=== PATIENT | female | born 1980 | race Caucasian/White ===

== ENCOUNTER 2017-09-03 22:41 | Emergency (ER) | payer OTHER ==
[2017-09-03] MEDS ORDERED: IBUPROFEN 400 MG TAB PO STA (23:05)
--- NOTE | 2017-09-03 23:53 | ED ---
Extremity Problem HPI - General Chief complaint: Extremity Problem,Nontraumatic Stated complaint: Arm bruising Time Seen by Provider: 09/03/17 22:47 Source: patient Mode of arrival: ambulatory Limitations: no limitations - History of Present Illness Initial comments: Patient is a 37-year-old woman who presents to be evaluated for left arm swelling and discoloration. The patient relates that she had gone to the plasma donation center days ago and donated. She states that at the time they noted she had a high pressure reading on return. The patient did not notice any symptoms on that day but today has noticed increasing of discoloration and swelling. There is tenderness there. No loss of strength or sensation to the arm. No fevers, dyspnea, palpitations or cough. MD Complaint: extremity pain, extremity swelling -: hour(s) Location: left, upper extremity History of Same: No Quality: dull Consistency: constant Improves with: nothing Associated Symptoms: denies other symptoms - Related Data Home Medications Medication Instructions Recorded Confirmed Levothyroxine Sodium [Synthroid] 125 mcg PO DAILY 10/19/13 08/19/15 Beclomethasone Dipropionate [Qvar 1 puff INHALATION RT-BID 06/28/14 08/19/15 40 mcg/puff] Albuterol Inhaler [Ventolin Hfa 1 - 2 puff INHALATION RT-Q6H PRN 06/12/15 Inhaler] Albuterol Nebulized [Ventolin 2.5 mg INHALATION RT-Q6H PRN 06/12/15 08/19/15 Nebulized] Cholecalciferol (Vitamin D3) 50,000 unit PO Q30D 06/12/15 08/19/15 [Vitamin D] Omeprazole [PriLOSEC] 20 mg PO AC-BRKFST 06/12/15 08/19/15 Zds-Mgee-Smnya Acid 1 cap PO DAILY 06/12/15 08/19/15 [-U Capsule] Previous Rx's Medication Instructions Recorded Famotidine [Pepcid] 20 mg PO BID #30 tablet 06/12/15 Vjn-Wfvb-Sjqbh Acid 1 each PO DAILY #100 cap 06/12/15 [-U Capsule (formulary)] Ibuprofen [Motrin] 600 mg PO Q8HR PRN #20 tab 09/04/17 Allergies Allergy/AdvReac Type Severity Reaction Status Date / Time cephalexin monohydrate Allergy Unknown Verified 09/03/17 22:45 [From Keflex] clindamycin Allergy Unknown Verified 09/03/17 22:45 diphenhydramine HCl Allergy Unknown Verified 09/03/17 22:45 [From Benadryl] nicotine Allergy Unknown Verified 09/03/17 22:45 Penicillins Allergy Unknown Verified 09/03/17 22:45 rofecoxib [From Vioxx] Allergy Unknown Verified 09/03/17 22:45 tramadol Allergy Unknown Verified 09/03/17 22:45 varenicline tartrate Allergy Unknown Verified 09/03/17 22:45 [From Chantix] Review of Systems ROS Statement: Those systems with pertinent positive or pertinent negative responses have been documented in the HPI. ROS Other: All systems not noted in ROS Statement are negative. Constitutional: Denies: fever, chills, weakness Respiratory: Denies: cough, dyspnea Cardiovascular: Denies: chest pain, palpitations, syncope Gastrointestinal: Denies: abdominal pain, vomiting Neurological: Denies: weakness, numbness, paresthesias Hematological/Lymphatic: Denies: easy bleeding Past Medical History Past Medical History: Asthma, Diabetes Mellitus, Hypertension, Thyroid Disorder Additional Past Medical History / Comment(s): arthritis History of Any Multi-Drug Resistant Organisms: None Reported Past Surgical History: Section, Orthopedic Surgery Past Anesthesia/Blood Transfusion Reactions: No Reported Reaction Past Psychological History: Anxiety, Bipolar, Depression Smoking Status: Current every day smoker Past Alcohol Use History: None Reported Past Drug Use History: None Reported - Past Family History Sister(s) Family Medical History: Musculoskeletal Disorder Additional Family Medical History / Comment(s): 3 sisters and 1 brother Mother Family Medical History: Diabetes Mellitus Additional Family Medical History / Comment(s): also dad and little sister. both parents and all siblings have bipolar General Exam Limitations: no limitations General appearance: alert, in no apparent distress, obese Head exam: Present: atraumatic, normocephalic Respiratory exam: Present: normal lung sounds bilaterally. Absent: respiratory distress, wheezes, rales, rhonchi, stridor Cardiovascular Exam: Present: regular rate, normal rhythm, normal heart sounds. Absent: systolic murmur, diastolic murmur, rubs, gallop Extremities exam: Present: full ROM, tenderness, normal capillary refill, other (Palpable hematoma left arm proximal to the elbow, anterior aspect.). Absent: normal inspection Skin exam: Present: warm, dry, intact, other (Ecchymosis to the left arm just proximal to the antecubital fossa and extending to the antecubital fossa. There does appear to be palpable hematoma..) Course Vital Signs 09/03/17 22:43 Temperature 98.3 F Pulse Rate 87 Respiratory 20 Rate Blood Pressure 159/91 O2 Sat by Pulse 96 Oximetry Disposition Clinical Impression: Hematoma Disposition: HOME SELF-CARE Condition: Good Instructions: Contusion in Adults (ED) Prescriptions: Ibuprofen [Motrin] 600 mg PO Q8HR PRN #20 tab PRN Reason: Pain Is patient prescribed a controlled substance at d/c from ED?: No Referrals: None,Stated [Primary Care Provider] - 1-2 days
--- NOTE | 2017-09-04 00:53 | US ---
EXAMINATION TYPE: US venous doppler duplex UE LT DATE OF EXAM: 09/04/2017 COMPARISON: NONE CLINICAL HISTORY: Pain. SIDE PERFORMED: Left Left Arm: Negative for DVT. No fluid collection or other abnormality seen at patients area of bruising. IMPRESSION: No evidence of deep venous thrombosis in the left arm.
[2017-09-04 01:41] VITALS: BP 116/69; PULSE 68; RESP 16; TEMP 98.9
== END 2017-09-04 01:40 | disposition home or self-care (01) ==
LOC: EC 22:41
DX: M79.81 Nontraumatic hematoma of soft tissue (principal); J45.909 Unspecified asthma, uncomplicated; E07.9 Disorder of thyroid, unspecified; M19.90 Unspecified osteoarthritis, unspecified site; F17.200 Nicotine dependence, unspecified, uncomplicated; Z88.0 Allergy status to penicillin; Z88.1 Allergy status to other antibiotic agents; Z88.5 Allergy status to narcotic agent; Z88.8 Allergy status to other drugs, medicaments and biological substances; Z79.51 Long term (current) use of inhaled steroids; Z79.899 Other long term (current) drug therapy
CPT/HCPCS: 99283

== ENCOUNTER 2017-11-01 01:04 | Emergency (ER) | payer OTHER ==
[2017-11-01 01:17] VITALS: RESP 17
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
[2017-11-01] MEDS ORDERED: ACETAMINOPHEN TAB 325 MG TAB PO STA (01:35)
[2017-11-01] MEDS ORDERED: IBUPROFEN 600 MG TAB PO STA (01:35)
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
[2017-11-01 04:42] VITALS: BP 129/62; PULSE 75; TEMP 97.1
== END 2017-11-01 04:43 | disposition home or self-care (01) ==
LOC: SUPCPDRO 01:04 → EC 01:04
DX: S00.03XA Contusion of scalp, initial encounter (principal); S00.531A Contusion of lip, initial encounter; R04.0 Epistaxis; M79.89 Other specified soft tissue disorders; J45.909 Unspecified asthma, uncomplicated; E07.9 Disorder of thyroid, unspecified; F17.200 Nicotine dependence, unspecified, uncomplicated; Z88.0 Allergy status to penicillin; Z88.1 Allergy status to other antibiotic agents; Z88.5 Allergy status to narcotic agent; Z88.6 Allergy status to analgesic agent; Z88.8 Allergy status to other drugs, medicaments and biological substances; Z91.048 Other nonmedicinal substance allergy status; Z79.51 Long term (current) use of inhaled steroids; Z79.899 Other long term (current) drug therapy; Y04.0XXA Assault by unarmed brawl or fight, initial encounter; Y92.481 Parking lot as the place of occurrence of the external cause
CPT/HCPCS: 70450; 70486; 72125; 99285

== ENCOUNTER → 2018-02-04 | Outpatient (CLI) | payer OTHER ==
--- NOTE | 2018-02-04 07:54 | US ---
EXAMINATION TYPE: US liver DATE OF EXAM: 02/04/2018 COMPARISON: CLINICAL HISTORY: R94.5 Elevated LFT. Abnormal labs, NPO, no surgeries EXAM MEASUREMENTS: Liver Length: 18.7 cm Gallbladder Wall: 0.2 cm CHD: 0.2 cm Right Kidney: 11.5 x 5.0 x 4.0 cm Pancreas: Tail obscured by overlying bowel gas Liver: Appears enlarged in size Gallbladder: wnl Evidence for sonographic Kelsey's sign: neg CBD: wnl Right Kidney: wnl IMPRESSION: Hepatomegaly. Otherwise unremarkable study.
== END ==
LOC: RADUSWWP 06:58
PROVIDERS: ATTEND Internal Medicine
DX: R16.0 Hepatomegaly, not elsewhere classified (principal); Z88.0 Allergy status to penicillin; Z88.8 Allergy status to other drugs, medicaments and biological substances
CPT/HCPCS: 76705

== ENCOUNTER → 2018-03-11 | Outpatient (CLI) | payer OTHER | END | disposition home or self-care (01) | LOC: LABWHC1 13:47 | PROVIDERS: ATTEND Pathology Anatomic Pathology & Clinical Pathology | DX: Z53.9 Procedure and treatment not carried out, unspecified reason (principal) ==

== ENCOUNTER → 2018-03-12 | Outpatient (CLI) | payer OTHER ==
--- NOTE | 2018-03-12 22:58 | MR ---
EXAMINATION TYPE: MR knee LT wo con DATE OF EXAM: 03/12/2018 COMPARISON: Outside left knee x-ray February 03, 2018 HISTORY: Left knee pain per order. Pain locking and swelling since 1997 after basketball fall injury per patient. TECHNIQUE: Multiplanar, multisequence images of the knee is performed without IV contrast. FINDINGS: MEDIAL MENISCUS: Anterior horn is intact without tear. Triangular shape increased signal posterior ho rn medial meniscus sagittal image 24 could reflect intrasubstance tear, does not extend to articular surface. LATERAL MENISCUS: Anterior and posterior horns are intact without tear. CRUCIATE LIGAMENTS: The anterior and posterior cruciate ligaments are intact and unremarkable. COLLATERAL LIGAMENTS: The medial collateral ligament and lateral collateral ligament complex are inta ct and unremarkable. EXTENSOR MECHANISM: Visualized quadriceps and patellar tendons are intact. EFFUSION: There is small to tiny suprapatellar joint effusion. POPLITEAL CYST: No popliteal/schumacher cyst. TRICOMPARTMENT SPACES: There is mild narrowing medial tibiofemoral compartment. No significant spurri ng is seen. CARTILAGE: Tricompartment articular cartilage is preserved. No significant chondromalacia patella is noted. BONE MARROW SIGNAL: Slight heterogeneity is present. No suspicious edema is seen. OTHER: No additional significant abnormality is appreciated. IMPRESSION: 1. Possible intrasubstance tear posterior horn of the medial meniscus. No full-thickness meniscal or ligamentous tear is seen. 2. Small to tiny suprapatellar joint effusion. 3. Mild to early medial tibiofemoral compartment osteoarthritic changes.
== END ==
LOC: RADMRIMAIN 06:05
PROVIDERS: ATTEND Orthopaedic Surgery
DX: M17.12 Unilateral primary osteoarthritis, left knee (principal)

== ENCOUNTER → 2018-03-12 | Outpatient (CLI) | payer OTHER ==
[2018-03-12 12:21] LABS: Iron Saturation 17.55 (12.00-45.00)
== END | disposition home or self-care (01) ==
LOC: LABWHC1 06:46
DX: R16.2 Hepatomegaly with splenomegaly, not elsewhere classified (principal)
CPT/HCPCS: 36415; 82728; 83540; 83550

== ENCOUNTER → 2018-04-30 | Outpatient (CLI) | payer OTHER ==
[2018-04-30 13:30] LABS: Basophils # (A) 0.1 k/uL (0-0.2); Basophils % (A) 1 %; Eosinophils # (A) 0.1 k/uL (0-0.7); Eosinophils % (A) 2 %; HCT 44.3 % (34.0-46.0); HGB 13.9 gm/dL (11.4-16.0); Lymphocytes # (A) 2.5 k/uL (1.0-4.8); Lymphocytes % (A) 40 %; MCH 26.8 pg (25.0-35.0); MCHC 31.3 g/dL (31.0-37.0); MCV 85.4 fL (80.0-100.0); Mean Platelet Volume 6.2; Monocytes # (A) 0.4 k/uL (0-1.0); Monocytes % (A) 6 %; Neutrophils # (A) 3.1 k/uL (1.3-7.7); Neutrophils % (A) 49 %; Platelet Count 305 k/uL (150-450); RBC 5.19 m/uL (3.80-5.40); RDW 13.7 % (11.5-15.5); WBC 6.2 k/uL (3.8-10.6)
[2018-04-30 18:39] LABS: Anion Gap 6.2 mmol/L (4.00-12.00); Carbon Dioxide 26.8 mmol/L (21.6-31.8); Potassium 4.2 mmol/L (3.5-5.5)
== END | disposition home or self-care (01) ==
LOC: LABWHC1 12:37
PROVIDERS: ATTEND Orthopaedic Surgery
DX: Z01.812 Encounter for preprocedural laboratory examination (principal); M23.92 Unspecified internal derangement of left knee
CPT/HCPCS: 36415; 80051; 85025

== ENCOUNTER 2018-05-14 10:26 | Day surgery (SDC) | payer OTHER ==
[2018-05-07 14:08] VITALS: BMI 38.8
--- NOTE | 2018-05-13 12:53 | HP ---
HISTORY AND PHYSICAL DATE OF SERVICE: 05/14/2018 Nia Cruz is a 37-year-old patient seen with progressive left knee pain. We discussed treatment options. She elected to proceed with arthroscopy. Consent was obtained. PAST MEDICAL HISTORY: Hypertension, iud-xldnvjn-onhovkquw diabetes, asthma. PAST SURGICAL HISTORY: section. DAILY MEDICATIONS: 1. Labetalol. 2. Lisinopril. 3. Metformin. ALLERGIES: ULTRAM, TYLENOL, BENADRYL, PENICILLIN, CLINDAMYCIN, KEFLEX, VICODIN ALLERGY. SOCIAL HISTORY: She currently smokes 1/3 pack cigarettes daily. PHYSICAL EXAMINATION OF THE LEFT KNEE: Range of motion is negative 4 to 90 degrees. Tenderness along the medial and lateral joint lines, positive medial Quinn's. Collateral ligaments are stable. Hip rotation without pain. Distal neurovascular exam is intact. RADIOGRAPHS OF THE LEFT KNEE: Revealed moderate medial compartment osteoarthritis. An MRI of the left knee revealed an abnormality through the medial meniscus. IMPRESSION: 1. Internal derangement, left knee with medial meniscal tear. 2. Left knee osteoarthritis. 3. Hypertension. 4. Iqw-zhkadmy-tqvocgnet diabetes. 5. Tobacco use. PLAN: Left knee arthroscopy with partial meniscectomy and debridement. MMODL / IJN: [id number] /
[~2018-05-14 10:26] MED LIST: DEXAMETHASONE SOD PHOSPHATE 10 MG/ML 1 ML VIAL IV ONE; HYDROmorphone 0.5 MG/0.5 ML SYRINGE IVP PRN; LACTATED RINGERS 1,000 ML IV SCH; LIDOCAINE 1% 20 ML VIAL (10MG/ML) FOR IV START INTRADERMA PRN; ONDANSETRON 4 MG/2 ML VIAL IVP ONE; Pre Op ABX Message 1 EACH MISC MISCELLANE ONE; SCOPOLAMINE 1.5MG/72HR PATCH TRANSDERM ONE
[2018-05-14 10:59] LABS: Glucose,Whole Blood 105 mg/dL (75-99)
[2018-05-14] MEDS ORDERED: ALBUTEROL INHALER 60 PUFF/8 GM INHALER INHALATION ONE (12:24)
[2018-05-14] MEDS ORDERED: fentaNYL (PF) 50 MCG/ML 2 ML AMP ONE (12:24)
[2018-05-14] MEDS ORDERED: LIDOCAINE 1% INJ 10MG/ML (20 ML MDV) ONE (12:24)
[2018-05-14] MEDS ORDERED: SUCCINYLCHOLINE CHLORIDE 100 MG/5 ML SYR IV ONE (12:24)
[2018-05-14] MEDS ORDERED: MIDAZOLAM 2 MG/2 ML VIAL ONE (12:24)
[2018-05-14] MEDS ORDERED: PROPOFOL 10 MG/ML 20 ML VIAL IV ONE (12:24)
[2018-05-14] MEDS ORDERED: BUPIVACAINE (PF) 0.25% 30 ML VIAL INTRAARTIC ONE (12:42)
[2018-05-14] MEDS ORDERED: ceFAZolin 1,000 MG/50 ML BAG (PMX) IVPB ONE (12:44)
[2018-05-14] MEDS ORDERED: LACTATED RINGERS 1,000 ML IV ONE (13:19)
--- NOTE | 2018-05-14 13:37 | P.OP ---
Date of Procedure: 05/14/18 Preoperative Diagnosis: Internal derangement left knee Postoperative Diagnosis: 1. Tear lateral meniscus left knee 2. Grade 2 chondromalacia medial femoral condyle left knee 3. Reactive synovitis medial, lateral and suprapatellar compartments left knee Procedure(s) Performed: 1. Arthroscopic partial lateral meniscectomy left knee 2. Arthroscopic chondroplasty medial femoral condyle left knee 3. Arthroscopic partial synovectomy medial, lateral and suprapatellar compartments left knee Anesthesia: LIZZYA, local Surgeon: Mp Michaud Estimated Blood Loss (ml): 9 Pathology: none sent Condition: stable Disposition: PACU Indications for Procedure: 37-year-old patient seen with progressive left knee pain. After treatment options were discussed, she elected to proceed with arthroscopy. Operative Findings: See description of procedure Description of Procedure: Patient was taken to the operative suite. Patient underwent a general anesthetic by the department of anesthesia. Patient was given preoperative antibiotics. The left lower extremity was placed in a well-padded arthroscopic leg gardner. The left leg was prepped and draped in the normal sterile orthopedic fashion. A lateral parapatellar and suprapatellar incision was made. Trochars were inserted. Arthroscopy was initiated. Suprapatellar pouch revealed diffuse thick reactive synovitis. The patellofemoral joint appeared to articulate congruently. There was grade 1 chondromalacia with no osteochondral tears present. The scope was guided into the medial gutter. No loose bodies or plica were identified. The scope was then guided into the medial compartment. A medial parapatellar incision was made. Trocar inserted followed by probe. The medial meniscus appeared stable. There was grade 2 chondral malacia changes along the anterior lateral aspect of the medial femoral condyle with a large osteochondral flap tear present. There was thick reactive synovitis anteriorly. I performed a chondroplasty of the medial femoral condyle down to stable tissue. I performed a partial synovectomy decompressing the reactive synovitis. The residual osteochondral surface was stable. There was good decompression of the synovitis. Scope and probe were then guided into the intercondylar notch. Cruciates were identified, probed and found to be stable. The scope and probe were then guided into lateral compartment. There was a radial tear posterior horn lateral meniscus. The lateral femoral condyle and tibial plateau reveals some mild grade 1 chondromalacia changes. There was thick reactive synovitis anteriorly. I performed a partial lateral meniscectomy down to stable tissue. I performed a partial synovectomy decompressing the reactive synovitis. The residual meniscus was stable. There was good decompression of the synovitis. The scope was in guided back into the suprapatellar compartment. I introduced a motorized shaver into the super patellar compartment. I debrided some piecemeal fragments of meniscus I encountered. I performed a partial synovectomy decompressing the thick reactive synovitis. The shaver was removed. I took one more look on the entire knee, no residual debris. Instruments were now removed from the joint. The joint was infiltrated with .25% Marcaine. Steri-Strips were applied to the portal sites. Sterile dressings were applied. The patient was placed into a GURVINDER hose. No tourniquet was utilized. The patient was awakened, transferred to a bed and taken to recovery stable satisfactory condition.
[2018-05-14 13:52] VITALS: TEMP 97.1
[2018-05-14 14:21] LABS: Glucose,Whole Blood 90 mg/dL (75-99)
[2018-05-14 15:26] VITALS: RESP 18
[2018-05-14 15:27] VITALS: BP 126/83; PULSE 78
== END 2018-05-14 15:37 | disposition home or self-care (01) ==
LOC: OR 10:26
PROVIDERS: ATTEND Orthopaedic Surgery
DX: M23.352 Other meniscus derangements, posterior horn of lateral meniscus, left knee (principal); M94.262 Chondromalacia, left knee; M65.862 Other synovitis and tenosynovitis, left lower leg; F17.210 Nicotine dependence, cigarettes, uncomplicated; M17.12 Unilateral primary osteoarthritis, left knee; I10 Essential (primary) hypertension; J45.909 Unspecified asthma, uncomplicated; E07.9 Disorder of thyroid, unspecified; K21.9 Gastro-esophageal reflux disease without esophagitis; E11.9 Type 2 diabetes mellitus without complications; Z79.899 Other long term (current) drug therapy; Z79.51 Long term (current) use of inhaled steroids; Z79.84 Long term (current) use of oral hypoglycemic drugs; Z88.5 Allergy status to narcotic agent; Z88.8 Allergy status to other drugs, medicaments and biological substances; Z88.0 Allergy status to penicillin; Z88.1 Allergy status to other antibiotic agents
CPT/HCPCS: 81025; 29881; J2250; J2405; J2001; J3010; J0690; J0330; J2704

== ENCOUNTER → 2018-06-01 | Outpatient (CLI) | payer OTHER ==
[2018-06-01 11:52] LABS: ALT 37 U/L (8-44); AST 26 U/L (13-35); Albumin/Globulin Ratio 2.33 (1.60-3.17); Alkaline Phosphatase 78 U/L (41-126); Bilirubin, Conjugated <0.20 mg/dL (0.20-0.40); Globulin 1.8 g/dL (1.6-3.3); Glucose 109 mg/dL (70-110); Total Bilirubin 0.3 mg/dL (0.2-1.2)
[2018-06-01 12:49] LABS: Hemoglobin A1C 5.4 % (4.0-6.0)
== END | disposition home or self-care (01) ==
LOC: LABWHC1 07:37
PROVIDERS: ATTEND Internal Medicine
DX: E03.9 Hypothyroidism, unspecified (principal); E11.9 Type 2 diabetes mellitus without complications; R79.89 Other specified abnormal findings of blood chemistry
CPT/HCPCS: 36415; 80076; 82947; 83036; 84439; 84443; 84481

== ENCOUNTER 2018-06-02 16:07 | Emergency (ER) | payer OTHER ==
[2018-06-02 16:25] VITALS: BP 151/101; PULSE 100; RESP 18; TEMP 98.3
[2018-06-02] MEDS ORDERED: predniSONE 20 MG TAB PO STA (16:37)
--- NOTE | 2018-06-02 16:37 | ED ---
Allergic Reaction HPI - General Chief complaint: Allergic Reaction Stated complaint: poss allergic reaction Time Seen by Provider: 06/02/18 16:28 Source: patient Mode of arrival: ambulatory Limitations: no limitations - History of Present Illness Initial Comments: This 38-year-old white female presents with a complaint of rash. She states that it initially started on her chest but also into her arms and face. It is very pruritic in nature. She does not know of any inciting incidents. There is been no new medications. She denies any changes in her food habits. She denies any shortness of breath or throat swelling. No other complaints or modifying factors. No previous similar incidents. - Related Data Home Medications Medication Instructions Recorded Confirmed Albuterol Inhaler [Ventolin Hfa 1 - 2 puff INHALATION RT-Q6H PRN 06/12/15 05/14/18 Inhaler] Levothyroxine Sodium [Synthroid] 300 mcg PO DAILY 04/30/18 05/14/18 Lisinopril [Zestril] 10 mg PO BID 04/30/18 05/14/18 metFORMIN HCL [Glucophage Xr] 500 mg PO BID 04/30/18 05/07/18 Budesonide [Pulmicort] 1 puff INHALATION BID 05/07/18 05/14/18 Cholecalciferol (Vitamin D3) 5,000 unit PO QAM 05/07/18 05/07/18 [Vitamin D3] Previous Rx's Medication Instructions Recorded Acetaminophen Tab [Tylenol Tab] 650 mg PO Q4H #20 tablet 11/01/17 Hydrocodone/Acetaminophen [[place] 1 each PO Q6HR PRN #20 tab 05/14/18 5-325] predniSONE 20 mg PO BID #10 tab 06/02/18 Allergies Allergy/AdvReac Type Severity Reaction Status Date / Time acetaminophen [From Vicodin] Allergy Rash/Hives Verified 06/02/18 16:25 cephalexin monohydrate Allergy Anaphylaxis Verified 06/02/18 16:25 [From Keflex] clindamycin Allergy Anaphylaxis Verified 06/02/18 16:25 diphenhydramine HCl Allergy Anaphylaxis Verified 06/02/18 16:25 [From Benadryl] hydrocodone [From Vicodin] Allergy Rash/Hives Verified 06/02/18 16:25 nicotine Allergy Rash/Hives Verified 06/02/18 16:25 Penicillins Allergy Anaphylaxis Verified 06/02/18 16:25 rofecoxib [From Vioxx] Allergy Anaphylaxis Verified 06/02/18 16:25 tramadol Allergy Anaphylaxis Verified 06/02/18 16:25 varenicline tartrate Allergy Confusion Verified 06/02/18 16:25 [From Chantix] Review of Systems ROS Statement: Those systems with pertinent positive or pertinent negative responses have been documented in the HPI. ROS Other: All systems not noted in ROS Statement are negative. Past Medical History Past Medical History: Asthma, Diabetes Mellitus, GERD/Reflux, Hypertension, Thyroid Disorder Additional Past Medical History / Comment(s): arthritis. POSS IBS OR CROHN'S History of Any Multi-Drug Resistant Organisms: None Reported Past Surgical History: Section Additional Past Surgical History / Comment(s): C-SEC X 3 Past Anesthesia/Blood Transfusion Reactions: No Reported Reaction Past Psychological History: Anxiety, Bipolar, Depression, PTSD Smoking Status: Current every day smoker - Past Family History Sister(s) Family Medical History: Fibromyalgia, Musculoskeletal Disorder Additional Family Medical History / Comment(s): MULTIPLE SCLEROSIS Mother Family Medical History: Coronary Artery Disease (CAD), CVA/TIA, Diabetes Mellitus Additional Family Medical History / Comment(s): BIPOLAR. PARKINSONS General Exam - General Exam Comments Initial Comments: GENERAL: The patient is well nourished and well hydrated. VITAL SIGNS: Heart rate, blood pressure, respiratory rate reviewed as recorded in nurse's notes. EYES: Pupils are round and reactive. Extraocular movements are intact. No conjunctival / lid redness or swelling. ENT: No external evidence of injury, swelling, or ecchymosis. Airway is patent. Throat is clear. No tongue or lip swelling. NECK: Nontender. No swelling or evidence of injury. No subcutaneous emphysema. Trachea is midline. No thyroid mass. HEART: Regular rate and rhythm. Good peripheral pulses. LUNGS/CHEST: Breath sounds clear and equal bilaterally. No rales, rhonchi, or wheezes. No ecchymosis, subcutaneous emphysema, or tenderness. ABDOMEN: Abdomen soft without tenderness. No palpable masses or organomegaly. No peritoneal signs. No abdominal wall swelling or ecchymosis. EXTREMITIES: No extremity tenderness. Normal muscle tone and function. No thoracolumbar tenderness. NEUROLOGIC: Sensation is grossly intact. Cranial nerve exam reveals face is symmetrical, tongue is midline, speech is clear. SKIN: There is a mildly erythematous rash present to the chest, proximal arms, and face. PSYCHIATRIC: Alert and oriented. Appropriate behavior and judgment. Limitations: no limitations Course Vital Signs 06/02/18 16:21 Temperature 98.3 F Pulse Rate 100 Respiratory 18 Rate Blood Pressure 151/101 O2 Sat by Pulse 98 Oximetry Medical Decision Making - Medical Decision Making The patient was seen and examined. This felt that her symptoms likely are related to an ALLERGIC reaction. She states that she cannot take Benadryl as she is deathly ALLERGIC to it. She'll be treated with steroids. She understands and agrees with this plan and leaves in no distress. Disposition Clinical Impression: Allergic reaction, Urticaria Disposition: HOME SELF-CARE Condition: Fair Instructions (If sedation given, give patient instructions): Urticaria (ED), General Allergic Reaction (ED) Prescriptions: predniSONE 20 mg PO BID #10 tab Is patient prescribed a controlled substance at d/c from ED?: No Referrals: Johan Kelly MD [Primary Care Provider] - 1-2 days Time of Disposition: 16:36
== END 2018-06-02 16:59 | disposition home or self-care (01) ==
LOC: EC 16:07
DX: L50.0 Allergic urticaria (principal); J45.909 Unspecified asthma, uncomplicated; E11.9 Type 2 diabetes mellitus without complications; K21.9 Gastro-esophageal reflux disease without esophagitis; I10 Essential (primary) hypertension; E07.9 Disorder of thyroid, unspecified; Z79.51 Long term (current) use of inhaled steroids; Z79.890 Hormone replacement therapy; Z79.899 Other long term (current) drug therapy; Z88.1 Allergy status to other antibiotic agents; Z88.0 Allergy status to penicillin; Z88.5 Allergy status to narcotic agent; Z88.8 Allergy status to other drugs, medicaments and biological substances; Z88.6 Allergy status to analgesic agent
CPT/HCPCS: 99283

== ENCOUNTER → 2018-07-08 | Outpatient (CLI) | payer OTHER ==
[2018-07-09 03:21] LABS: ALT 37 U/L (8-44); AST 31 U/L (13-35); Albumin/Globulin Ratio 2.05 (1.60-3.17); Alkaline Phosphatase 103 U/L (41-126); Bilirubin, Conjugated <0.20 mg/dL (0.20-0.40); Globulin 2.1 g/dL (1.6-3.3); Total Bilirubin 0.2 mg/dL (0.3-1.2); Total Protein 6.4 g/dL (6.2-8.2)
== END | disposition home or self-care (01) ==
LOC: LABWHC1 15:27
DX: R74.8 Abnormal levels of other serum enzymes (principal)
CPT/HCPCS: 36415; 80076

== ENCOUNTER → 2018-08-06 | Outpatient (CLI) | payer OTHER ==
--- NOTE | 2018-08-06 09:22 | MR ---
EXAMINATION TYPE: MR knee RT wo con DATE OF EXAM: 08/06/2018 COMPARISON: Right knee x-ray dated 07/21/2018. HISTORY: Pain in right knee. TECHNIQUE: Multiplanar, multisequence images of the knee is performed without IV contrast. FINDINGS: MEDIAL MENISCUS: Anterior horn is intact without tear. Increased signal posterior horn medial menisc us does not distinctly extend to articular surface. Mild bulging medial meniscus noted on coronal aristeo ges. LATERAL MENISCUS: Anterior and posterior horns are intact without tear. CRUCIATE LIGAMENTS: The anterior and posterior cruciate ligaments are intact and unremarkable. COLLATERAL LIGAMENTS: The medial collateral ligament and lateral collateral ligament complex are inta ct and unremarkable. EXTENSOR MECHANISM: Visualized quadriceps and patellar tendons are intact. EFFUSION: There is small suprapatellar joint effusion. POPLITEAL CYST: No popliteal/schumacher cyst. TRICOMPARTMENT SPACES: Mild tricompartment joint space loss. Mild tibial condylar spurring. CARTILAGE: Mild thinning of articular cartilage medial tibiofemoral compartment. BONE MARROW SIGNAL: No focal abnormal marrow signal is appreciated. OTHER: No additional significant abnormality is appreciated. IMPRESSION: 1. Intrasubstance tear posterior horn medial meniscus, no full-thickness meniscal or ligamentous tear . 2. Mild tricompartment degenerative changes as detailed above. 3. Small suprapatellar joint effusion.
== END ==
LOC: RADMRIMAIN 08:22
PROVIDERS: ATTEND Orthopaedic Surgery
DX: S83.241A Other tear of medial meniscus, current injury, right knee, initial encounter (principal); M17.11 Unilateral primary osteoarthritis, right knee

== ENCOUNTER → 2018-08-14 | Outpatient (CLI) | payer OTHER ==
[2018-08-14 13:05] LABS: Basophils # (A) 0.1 k/uL (0-0.2); Basophils % (A) 1 %; Eosinophils # (A) 0.2 k/uL (0-0.7); Eosinophils % (A) 3 %; HCT 41.3 % (34.0-46.0); HGB 13.1 gm/dL (11.4-16.0); Lymphocytes # (A) 2.8 k/uL (1.0-4.8); Lymphocytes % (A) 39 %; MCH 25.8 pg (25.0-35.0); MCHC 31.7 g/dL (31.0-37.0); MCV 81.3 fL (80.0-100.0); Mean Platelet Volume 6.7; Monocytes # (A) 0.3 k/uL (0-1.0); Monocytes % (A) 4 %; Neutrophils # (A) 3.9 k/uL (1.3-7.7); Neutrophils % (A) 52 %; Platelet Count 327 k/uL (150-450); RBC 5.08 m/uL (3.80-5.40); RDW 14.6 % (11.5-15.5); WBC 7.4 k/uL (3.8-10.6)
[2018-08-14 13:21] LABS: Potassium 4.1 mmol/L (3.5-5.1)
== END | disposition home or self-care (01) ==
LOC: LABPAT 12:10
PROVIDERS: ATTEND Orthopaedic Surgery
DX: Z01.812 Encounter for preprocedural laboratory examination (principal)
CPT/HCPCS: 36415; 80051; 85025

== ENCOUNTER 2018-09-17 11:16 | Day surgery (SDC) | payer OTHER ==
[2018-09-15 14:15] VITALS: BMI 38.1
--- NOTE | 2018-09-16 14:07 | HP ---
HISTORY AND PHYSICAL DATE OF SURGERY: 09/17/2018 Nia Cruz is a 38-year-old lady seen with progressive right knee pain. We discussed options for treatment, she elected to proceed with right knee arthroscopy. Consent was obtained. PAST MEDICAL HISTORY: Asthma, vop-[id number]-bplqabpxl diabetes, hypothyroidism, hypertension. PAST SURGICAL HISTORY: section. DAILY MEDICATIONS: 1. Lisinopril. 2. Metformin. 3. Terazosin. ALLERGIES: ULTRAM, TYLENOL, BENADRYL, PENICILLIN, CLINDAMYCIN, VIOXX, KEFLEX, VICODIN. SOCIAL HISTORY: She smokes 1/3 pack cigarettes daily. PHYSICAL EVALUATION OF THE RIGHT KNEE: Her range of motion is 0 to 120 degrees. She has a mild effusion present, tenderness medial joint line. Positive medial Quinn's. Ligaments stable. Hip rotation without pain. Distal neurovascular exam is intact. RADIOGRAPHS OF THE RIGHT KNEE: Revealed mild to moderate osteoarthritic change. MRI of the right knee revealed medial meniscal tear. Mild osteoarthritic change. IMPRESSION: Internal derangement, right knee with medial meniscal tear. PLAN: Right knee arthroscopy with partial meniscectomy and debridement. MMODL / IJN: [id number] /
[~2018-09-17 11:16] MED LIST changes: +CIPROFLOXACIN/DEXTROSE PMX 400 MG in DEXTROSE/WATER 1 200ML.BAG IVPB ONE; -Pre Op ABX Message 1 EACH MISC MISCELLANE ONE
[2018-09-17 12:08] LABS: Glucose,Whole Blood 92 mg/dL (75-99)
[2018-09-17] MEDS ORDERED: MIDAZOLAM 2 MG/2 ML VIAL ONE (12:55)
[2018-09-17] MEDS ORDERED: PROPOFOL 10 MG/ML 20 ML VIAL IV ONE (12:55)
[2018-09-17] MEDS ORDERED: SUCCINYLCHOLINE CHLORIDE 100 MG/5 ML SYR IV ONE (12:55)
[2018-09-17] MEDS ORDERED: LIDOCAINE 1% INJ 10MG/ML (20 ML MDV) ONE (12:55)
[2018-09-17] MEDS ORDERED: fentaNYL (PF) 50 MCG/ML 2 ML AMP ONE (12:55)
[2018-09-17] MEDS ORDERED: BUPIVACAINE (PF) 0.25% 30 ML VIAL SQ ONE (13:23)
--- NOTE | 2018-09-17 13:48 | P.OP ---
Date of Procedure: 09/17/18 Preoperative Diagnosis: Internal derangement right knee Postoperative Diagnosis: 1. Tear medial meniscus right knee 2. Grade 2 chondromalacia medial femoral condyle right knee 3. Reactive synovitis medial, lateral and suprapatellar compartments right knee Procedure(s) Performed: 1. Arthroscopic partial medial meniscectomy right knee 2. Arthroscopic chondroplasty medial femoral condyle right knee 3. Arthroscopic partial synovectomy medial, lateral and suprapatellar compartments right knee Anesthesia: GETA Surgeon: Mp Michaud Estimated Blood Loss (ml): 10 Pathology: none sent Condition: stable Disposition: PACU Indications for Procedure: 38-year-old patient seen with progressive right knee pain. After having treatment options discussed, she elected to proceed with arthroscopy. Operative Findings: See description of procedure Description of Procedure: Patient was taken to the operative suite. Patient underwent a general anesthetic by the department of anesthesia. Patient was given preoperative anti biotics. The right lower extremity was placed in a well-padded arthroscopic leg gardner. The right leg was prepped and draped in the normal sterile orthopedic fashion. A lateral parapatellar and suprapatellar incision was made. Trochars were inserted. Arthroscopy was initiated. Suprapatellar pouch revealed diffuse thick reactive synovitis. The patellofemoral joint appeared to articulate leonard ruently. There with grade 1/2 chondromalacia with no osteochondral tears present. The scope was guided into the medial gutter. No loose bodies or plica were identified. The scope was then guided into the medial compartment. A medial parapatellar incision was made. Trocar inserted followed by probe. There was a radial tear involving the posterior horn of the medial meniscus. There were grade 2 chondromalacia changes of the medial femoral condyle with some osteochondral tears present. There was reactive synovitis anteriorly. I performed a partial medial meniscectomy down to stable tissue. I performed a chondroplasty of the medial femoral condyle down to stable tissue Performed a partial synovectomy decompressing the reactive synovitis. The residual meniscus was stable. The residual osteochondral surface of the medial femoral condyle was stable. There was good decompression synovitis. Scope and probe were then guided into the intercondylar notch. Cruciates were identified, probed and found to be stable. The scope and probe were then guided into lateral compartment. The lateral meniscus was probed and found to be stable. There was some reactive synovitis anteriorly. There was no chondromalacia present. Performed a partial synovectomy decompressing reactive synovitis. The scope was in guided back into the suprapatellar compartment. I introduced a motorized sha idania into the suprapatellar compartment. I debrided some piecemeal fragments of meniscus I encountered. I performed a partial synovectomy. The shaver was removed. I took one more look on the entire knee, no residual debris. Instruments were now removed from the joint. The joint was infiltrated with .25% Marcaine. Steri-Strips were applied to the portal sites. Sterile dressings were applied. The patient was placed into a GURVINDER hose. No tourniquet was utilized. The patient was awakened, transferred to a bed and taken to recovery stable satisfactory condition.
[2018-09-17 13:59] VITALS: TEMP 97.7
[2018-09-17 14:46] VITALS: RESP 16
[2018-09-17 14:50] LABS: Glucose,Whole Blood 110 mg/dL (75-99)
[2018-09-17] MEDS ORDERED: HYDROcodone/APAP 5-325MG 1 EACH TAB PO ONE (14:54)
[2018-09-17 15:09] VITALS: BP 113/70; PULSE 73
== END 2018-09-17 15:41 | disposition home or self-care (01) ==
LOC: OR 11:16
PROVIDERS: ATTEND Orthopaedic Surgery
DX: M23.321 Other meniscus derangements, posterior horn of medial meniscus, right knee (principal); M94.261 Chondromalacia, right knee; M65.861 Other synovitis and tenosynovitis, right lower leg; J45.909 Unspecified asthma, uncomplicated; E11.9 Type 2 diabetes mellitus without complications; E03.9 Hypothyroidism, unspecified; I10 Essential (primary) hypertension; F17.210 Nicotine dependence, cigarettes, uncomplicated; E66.9 Obesity, unspecified; K21.9 Gastro-esophageal reflux disease without esophagitis; G47.33 Obstructive sleep apnea (adult) (pediatric); Z79.899 Other long term (current) drug therapy; Z79.84 Long term (current) use of oral hypoglycemic drugs; Z88.5 Allergy status to narcotic agent; Z88.8 Allergy status to other drugs, medicaments and biological substances; Z88.0 Allergy status to penicillin; Z88.1 Allergy status to other antibiotic agents; Z79.890 Hormone replacement therapy; Z68.38 Body mass index [BMI] 38.0-38.9, adult
CPT/HCPCS: 81025; 29881; J2250; J1100; J2405; J2001; J3010; J0744; J0330; J2704

== ENCOUNTER 2018-10-11 00:38 | Emergency (ER) | payer OTHER ==
[2018-10-11 00:44] VITALS: BP 168/91; PULSE 82; RESP 18; TEMP 97.1
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
--- NOTE | 2018-10-11 01:17 | XR ---
History: ITS.REASON XR Reason: Pain fall from sitting orthoscopic surg 09/17 Exam: XR RIGHT KNEE 3 views Comparison: FINDINGS: No fracture, dislocation or joint effusion. IMPRESSION: No fracture, dislocation or joint effusion.
== END 2018-10-11 01:45 | disposition home or self-care (01) ==
LOC: EC 00:38
DX: M25.561 Pain in right knee (principal); I10 Essential (primary) hypertension; E07.9 Disorder of thyroid, unspecified; F17.200 Nicotine dependence, unspecified, uncomplicated; Z88.0 Allergy status to penicillin; Z88.1 Allergy status to other antibiotic agents; Z88.5 Allergy status to narcotic agent; Z88.6 Allergy status to analgesic agent; Z88.8 Allergy status to other drugs, medicaments and biological substances; Z91.048 Other nonmedicinal substance allergy status; Z79.84 Long term (current) use of oral hypoglycemic drugs; Z79.890 Hormone replacement therapy; Z79.899 Other long term (current) drug therapy; Z98.890 Other specified postprocedural states; W01.0XXA Fall on same level from slipping, tripping and stumbling without subsequent striking against object, initial encounter; Y92.811 Bus as the place of occurrence of the external cause
CPT/HCPCS: 99283

== ENCOUNTER → 2019-01-01 | Outpatient (CLI) | payer OTHER ==
--- NOTE | 2019-01-01 11:08 | XR ---
EXAMINATION TYPE: XR wrist limited bilateral DATE OF EXAM: 01/01/2019 CLINICAL HISTORY: Numbness and tingling of both hands and wrists TECHNIQUE: Frontal, lateral and oblique images of both wrist are obtained. COMPARISON: None FINDINGS: There is no acute fracture/dislocation evident in either wrist. There is very mild negat benjamin ulnar variance on the right and also on the left. Sclerotic focus of the left radial aspect of th e metaphysis of the radius likely represents a bone and is well-circumscribed. Very minimal joint spa ce narrowing of the first carpometacarpal joints bilaterally. Carpal carpal interspaces are maintaine d. Soft tissues are unremarkable. IMPRESSION: 1. No acute fracture or dislocation in either wrist. 2. Very mild arthropathy of the first carpometacarpal joints bilaterally and very minimal subtle nega tive ulnar variance bilaterally.
== END | disposition home or self-care (01) ==
LOC: RADXRMAIN 09:03
PROVIDERS: ATTEND Orthopaedic Surgery
DX: M18.0 Bilateral primary osteoarthritis of first carpometacarpal joints (principal)

== ENCOUNTER → 2019-01-07 | Outpatient (CLI) | payer OTHER ==
[2019-01-07 18:35] LABS: African American GFR (CKD) 108.4 (60.0-200.0); Albumin/Globulin Ratio 2.35 (1.60-3.17); Anion Gap 4.9 mmol/L (4.00-12.00); Calcium 8.6 mg/dL (8.7-10.3); Carbon Dioxide 26.1 mmol/L (21.6-31.8); Globulin 1.7 g/dL (1.6-3.3); Potassium 4.1 mmol/L (3.5-5.5); Total Bilirubin 0.4 mg/dL (0.3-1.2); Total Protein 5.7 g/dL (6.2-8.2)
== END | disposition home or self-care (01) ==
LOC: LABWHC1 07:12
PROVIDERS: ATTEND Nurse Practitioner
DX: K76.0 Fatty (change of) liver, not elsewhere classified (principal)
CPT/HCPCS: 36415; 80053

== ENCOUNTER → 2019-01-09 | Outpatient (CLI) | payer OTHER ==
--- NOTE | 2019-01-09 14:50 | NM ---
EXAMINATION TYPE: NM hepatobiliary w EF DATE OF EXAM: 01/09/2019 COMPARISON: NONE HISTORY: TECHNIQUE: After the intravenous administration of 5.2 mCi Tc 99m Mebrofenin hepatobiliary scintigrap hy is performed. Immediate images post injection. FINDINGS: There is prompt uptake of the tracer by the liver that has normal size and contour. There is tracer i n the gallbladder at 10 minutes and in the small bowel at 15 minutes which excludes obstruction of th e cystic duct and common bile duct. Tracer is mostly cleared from the liver at 1 hour. There is no fo nimesh liver defect. The post stimulation ensure images show gallbladder ejection fraction of 47% which is within normal l imits. IMPRESSION: Exam is within normal limits.
== END | disposition home or self-care (01) ==
LOC: RADNMMAIN 11:49
PROVIDERS: ATTEND Family Medicine
DX: R10.84 Generalized abdominal pain (principal); M54.5 Low back pain
CPT/HCPCS: 78226; A9537

== ENCOUNTER → 2019-03-09 | Outpatient (CLI) | payer OTHER ==
[2019-03-09 11:25] LABS: Basophils # (A) 0.1 k/uL (0-0.2); Basophils % (A) 1 %; Eosinophils # (A) 0.2 k/uL (0-0.7); Eosinophils % (A) 2 %; HCT 39.8 % (34.0-46.0); HGB 12.5 gm/dL (11.4-16.0); Hypochromasia Moderate; Lymphocytes # (A) 2.5 k/uL (1.0-4.8); Lymphocytes % (A) 35 %; MCH 26.2 pg (25.0-35.0); MCHC 31.3 g/dL (31.0-37.0); MCV 83.5 fL (80.0-100.0); Mean Platelet Volume 7.1; Monocytes # (A) 0.4 k/uL (0-1.0); Monocytes % (A) 6 %; Neutrophils % (A) 56 %; Platelet Count 320 k/uL (150-450); RBC 4.77 m/uL (3.80-5.40); RDW 14.6 % (11.5-15.5); WBC 7.1 k/uL (3.8-10.6)
[2019-03-09 11:39] LABS: Potassium 4.1 mmol/L (3.5-5.1)
== END ==
LOC: LABPAT 09:36
PROVIDERS: ATTEND Orthopaedic Surgery
DX: Z01.812 Encounter for preprocedural laboratory examination (principal); G56.02 Carpal tunnel syndrome, left upper limb
CPT/HCPCS: 36415; 80051; 85025

== ENCOUNTER 2019-03-31 10:23 | Day surgery (SDC) | payer OTHER ==
[2019-03-29 11:38] VITALS: BMI 40.8
--- NOTE | 2019-03-30 13:49 | HP ---
HISTORY AND PHYSICAL DATE OF SERVICE: 03/31/2019 Nia Cruz is a 38-year-old patient seen with symptomatic left carpal tunnel syndrome. We discussed options. She elected to proceed with decompression left median nerve, consent was obtained. PAST MEDICAL HISTORY: Asthma, rok-zshkrtq-ttrsqleek diabetes, hypertension. PAST SURGICAL HISTORY: section. DAILY MEDICATIONS: 1. Labetalol. 2. Lisinopril. 3. Metformin. ALLERGIES: Are ULTRAM, TYLENOL, BENADRYL, PENICILLIN, CLINDAMYCIN, KEFLEX, VICODIN. SOCIAL HISTORY: She smokes cigarettes. PHYSICAL EVALUATION OF THE LEFT WRIST: She has a positive carpal compression and carpal Tinel's causing numbness and tingling throughout the median nerve distribution. She has some decreased sensation throughout the median nerve distribution. She has good radial pulse. She is able to move fingers with no pain. She has no tenderness along the A1 shala sites. RADIOGRAPHS OF THE LEFT WRIST: Revealed no osseous abnormality. EMG revealed bilateral upper extremity carpal tunnel syndrome. IMPRESSION: 1. Left carpal tunnel syndrome. 2. Hypertension. 3. Wwc-telfqjg-dhfhewuds diabetes. 4. Tobacco use. PLAN: Decompression of left median nerve. MMODL / IJN: [id number] /
[~2019-03-31 10:23] MED LIST changes: -CIPROFLOXACIN/DEXTROSE PMX 400 MG in DEXTROSE/WATER 1 200ML.BAG IVPB ONE; -LACTATED RINGERS 1,000 ML IV SCH; +MIDAZOLAM 2 MG/2 ML VIAL IV PRN; -SCOPOLAMINE 1.5MG/72HR PATCH TRANSDERM ONE; +VANCOMYCIN 1,750 MG in SODIUM CHLORIDE 0.9% 500 ML 500 ML IVPB ONE; +fentaNYL (PF) 50 MCG/ML 2 ML AMP IVP PRN
[2019-03-31 10:41] VITALS: RESP 16; TEMP 98.3
[2019-03-31] MEDS: LACTATED RINGERS 1,000 ML IV SCH ×2 (10:50→11:13)
[2019-03-31 11:13] LABS: Glucose,Whole Blood 95 mg/dL (75-99)
[2019-03-31] MEDS ORDERED: BUPIVACAINE (PF) 0.25% 30 ML VIAL SQ ONE ×2 (11:13→11:34)
[2019-03-31] MEDS ORDERED: PROPOFOL 10 MG/ML 20 ML VIAL IV ONE (11:19)
[2019-03-31] MEDS ORDERED: fentaNYL (PF) 50 MCG/ML 2 ML AMP ONE (11:19)
[2019-03-31] MEDS ORDERED: ceFAZolin 1,000 MG VIAL ONE (11:19)
[2019-03-31] MEDS ORDERED: LIDOCAINE 1% INJ 10MG/ML (20 ML MDV) ONE (11:19)
[2019-03-31] MEDS ORDERED: MIDAZOLAM 2 MG/2 ML VIAL ONE (11:19)
[2019-03-31] MEDS ORDERED: SODIUM CHLORIDE 0.9% 100 ML with ceFAZolin 2,000 MG IV ONE ×2 (11:27)
--- NOTE | 2019-03-31 11:56 | P.OP ---
Date of Procedure: 03/31/19 Preoperative Diagnosis: Left carpal tunnel syndrome Postoperative Diagnosis: Left carpal tunnel syndrome Procedure(s) Performed: Decompression left median nerve Anesthesia: MAC, local Surgeon: Mp Michaud Estimated Blood Loss (ml): 2 Pathology: none sent Condition: stable Disposition: PACU Indications for Procedure: 38-year-old patient seen with symptomatic left carpal tunnel syndrome. After having options regarding treatment discussed she elected to proceed with decom pression left median nerve. Operative Findings: see description of procedure Description of Procedure: Patient was taken to the operative suite. Patient underwent IV sedation by the department of anesthesia. A well-padded tourniquet was placed proximal left upper extremity. The left upper extremity was prepped and draped in the normal sterile orthopedic fashion. The patient did receive preoperative IV antibiotics. The proposed incision site was infiltrated with quarter percent plain Marcaine totaling 10 mL. When sufficient local analgesia was noted the extremity was elevated and the tourniquet was insufflated to 250. I now made an incision beginning at the distal volar wrist crease extending distally approximately 3 cm in line with the fourth metacarpal. I now dissected through this out subcutaneous soft tissues down through the palmar fascia to the transverse carpal ligament. I now incised the transverse carpal ligament. I now released the transverse carpal ligament proximal proximally and distally with blunt Metzenbaums. There was good complete release of the transverse carpal ligament with good decompression of the nerve. Hemostasis was achieved. The wound was irrigated. Skin margins were approximated with nylon suture. I applied sterile dressings. The tourniquet was released and immediate capillary refill to all digits noted. The patient awakened and then transferred to recovery stable condition.
[2019-03-31 12:49] VITALS: BP 142/84; PULSE 65
== END 2019-03-31 12:52 | disposition home or self-care (01) ==
LOC: OR 10:23
PROVIDERS: ATTEND Orthopaedic Surgery
DX: G56.02 Carpal tunnel syndrome, left upper limb (principal); I10 Essential (primary) hypertension; J45.909 Unspecified asthma, uncomplicated; E11.9 Type 2 diabetes mellitus without complications; E07.9 Disorder of thyroid, unspecified; F17.210 Nicotine dependence, cigarettes, uncomplicated; Z79.84 Long term (current) use of oral hypoglycemic drugs; Z79.899 Other long term (current) drug therapy; Z88.5 Allergy status to narcotic agent; Z88.8 Allergy status to other drugs, medicaments and biological substances; Z88.0 Allergy status to penicillin; Z88.1 Allergy status to other antibiotic agents
CPT/HCPCS: 64721; 81025; J2250; J1100; J2405; J0690; J2001; J3010; J2704

== ENCOUNTER → 2019-07-16 | Outpatient (CLI) | payer OTHER | END | disposition home or self-care (01) | LOC: LABWHC1 10:03 | PROVIDERS: ATTEND Family Medicine | DX: Z20.828 Contact with and (suspected) exposure to other viral communicable diseases (principal) | CPT/HCPCS: 87635 ==

== ENCOUNTER → 2019-08-04 | Outpatient (CLI) | payer OTHER ==
--- NOTE | 2019-08-07 15:50 | ECHOF ---
Referral Reason:I37.9 Pulmonary Valve Disorder MEASUREMENTS -------- HEIGHT: 172.7 cm WEIGHT: 118.4 kg BP: IVSd: 1.4 cm (0.6 - 1.1) LVIDd: 4.2 cm (3.9 - 5.3) LVPWd: 1.5 cm (0.6 - 1.1) IVSs: 1.8 cm LVIDs: 2.8 cm LVPWs: 1.8 cm LA Diam: 3.3 cm (2.7 - 3.8) RVIDd: 2.8 cm (< 3.3) LAESV Index (A-L): 31.16 ml/m Ao Diam: 3.1 cm (2.0 - 3.7) AV Cusp: 2.1 cm (1.5 - 2.6) EPSS: 0.2 cm MV E Zeb: 1.27 m/s MV DecT: 185 ms MV A Zeb: 0.84 m/s MV E/A Ratio: 1.51 RAP: 5.00 mmHg RVSP: 33.43 mmHg MV EF SLOPE: 132.40 mm/s (70 - 150) MV EXCURSION: 13.54 mm (> 18.000) FINDINGS -------- Sinus rhythm. This was a technically adequate study. The left ventricular size is normal. There is moderate concentric left ventricular hypertrophy. O verall left ventricular systolic function is normal with, an EF between 60 - 65 %. The right ventricle is normal in size. LA is midly dilated 29-33ml/m2. The right atrium is normal in size. Interatrial and interventricular septum intact. The aortic valve is trileaflet and appears structurally normal. The mitral valve is normal. Mild tricuspid regurgitation present. There is borderline pulmonary hypertension. The right ventr icular systolic pressure, as measured by Doppler, is 33.43mmHg. Trace/mild (physiologic) pulmonic regurgitation. The aortic root size is normal. Normal inferior vena cava with normal inspiratory collapse consistent with estimated right atrial pre ssure of 5 mmHg. The inferior vena cava is mildly dilated. There is no pericardial effusion. CONCLUSIONS -------- 1. Sinus rhythm. 2. This was a technically adequate study. 3. The left ventricular size is normal. 4. There is moderate concentric left ventricular hypertrophy. 5. Overall left ventricular systolic function is normal with, an EF between 60 - 65 %. 6. The right ventricle is normal in size. 7. LA is midly dilated 29-33ml/m2. 8. The right atrium is normal in size. 9. Interatrial and interventricular septum intact. 10. The aortic valve is trileaflet and appears structurally normal. 11. The mitral valve is normal. 12. Mild tricuspid regurgitation present. 13. There is borderline pulmonary hypertension. 14. The right ventricular systolic pressure, as measured by Doppler, is 33.43mmHg. 15. Trace/mild (physiologic) pulmonic regurgitation. 16. The aortic root size is normal. 17. Normal inferior vena cava with normal inspiratory collapse consistent with estimated right atrial pressure of 5 mmHg. 18. The inferior vena cava is mildly dilated. 19. There is no pericardial effusion. FURNITURE UPHOLSTERER: Viola Escamilla RDCS
== END | disposition home or self-care (01) ==
LOC: RADECHMAIN 12:01
PROVIDERS: ATTEND Family Medicine
DX: I51.7 Cardiomegaly (principal); I34.0 Nonrheumatic mitral (valve) insufficiency; I37.1 Nonrheumatic pulmonary valve insufficiency; I27.20 Pulmonary hypertension, unspecified; Z88.6 Allergy status to analgesic agent; Z88.1 Allergy status to other antibiotic agents; Z88.5 Allergy status to narcotic agent; Z88.0 Allergy status to penicillin; Z88.8 Allergy status to other drugs, medicaments and biological substances
CPT/HCPCS: 93306

== ENCOUNTER 2019-08-08 21:02 | Emergency (ER) | payer OTHER ==
[2019-08-08 21:09] VITALS: RESP 18
--- NOTE | 2019-08-08 21:10 | ED ---
Recheck HPI - General Chief Complaint: Recheck/Abnormal Lab/Rx Stated Complaint: Hypoglycemia Time Seen by Provider: 08/08/19 21:06 Source: EMS, RN notes reviewed, old records reviewed Mode of arrival: EMS Limitations: no limitations - History of Present Illness Initial Comments: This is a 39-year-old female presenting for evaluation regarding possible low blood sugar. Patient has history of diabetes check blood sugar tonight and it was low which made her concerned that it may drop lower patient presents for evaluation. Patient denies any other complaints no symptoms no attempted overdose. No new no other new medications MD Complaint: abnormal lab (Low blood sugar) -: minutes(s) Returns Today for: Called Because of Abnormal Lab/Test (Patient took her blood sugar at home and it was low became concerned) Symptoms Since Prior Visit: no new symptoms Associated Symptoms: none Treatments Prior to Arrival: other (None) - Related Data Home Medications Medication Instructions Recorded Confirmed Lisinopril [Zestril] 10 mg PO DAILY 04/30/18 04/16/19 metFORMIN HCL [Glucophage Xr] 500 mg PO BID 04/30/18 04/16/19 Levothyroxine Sodium [Tirosint] 400 mcg PO DAILY 07/09/18 04/16/19 Atorvastatin [Lipitor] 40 mg PO DAILY 09/15/18 04/16/19 Aspirin [Adult Low Dose Aspirin EC] 81 mg PO DAILY 10/30/18 04/16/19 Acetaminophen Tab [Tylenol Tab] 650 mg PO Q4H PRN 03/29/19 04/16/19 Ergocalciferol [Vitamin D2] 50,000 unit PO Q30D 03/29/19 04/16/19 Omeprazole [PriLOSEC] 20 mg PO AC-BID 03/29/19 04/16/19 Topamax(Unknown Dose) 1 tab PO BID 03/29/19 04/16/19 Umeclidinium [place] [Incruse 2 puff INHALATION DAILY 03/29/19 04/16/19 Ellipta] Zyprexa(Unknown Dose) 1 tab PO DAILY 03/29/19 04/16/19 Previous Rx's Medication Instructions Recorded Hydrocodone/Acetaminophen [[place] 1 each PO Q6HR PRN #10 tab 03/31/19 5-325] Allergies Allergy/AdvReac Type Severity Reaction Status Date / Time cephalexin [From Keflex] Allergy Anaphylaxis Verified 08/08/19 21:08 clindamycin Allergy Anaphylaxis Verified 08/08/19 21:08 diphenhydramine Allergy Anaphylaxis Verified 08/08/19 21:08 [From Benadryl] Penicillins Allergy Anaphylaxis Verified 08/08/19 21:08 quetiapine [From Seroquel] Allergy Rash/Hives Verified 08/08/19 21:08 rofecoxib [From Vioxx] Allergy Anaphylaxis Verified 08/08/19 21:08 tramadol Allergy Rash/Hives Verified 08/08/19 21:08 varenicline tartrate Allergy Confusion Verified 08/08/19 21:08 [From Chantix] Review of Systems ROS Statement: Those systems with pertinent positive or pertinent negative responses have been documented in the HPI. ROS Other: All systems not noted in ROS Statement are negative. Past Medical History Past Medical History: Asthma, Diabetes Mellitus, GERD/Reflux, Hyperlipidemia, Hypertension, Thyroid Disorder Additional Past Medical History / Comment(s): nonalcoholic fatty liver, edema lower legs/feet History of Any Multi-Drug Resistant Organisms: None Reported Past Surgical History: Section, Orthopedic Surgery Additional Past Surgical History / Comment(s): C-SEC X 3, left knee, RT KNEE SX-08/2018, LT CTR Past Anesthesia/Blood Transfusion Reactions: No Reported Reaction Past Psychological History: Anxiety, Bipolar, Depression, PTSD Smoking Status: Current every day smoker Past Alcohol Use History: None Reported Past Drug Use History: None Reported - Past Family History Sister(s) Family Medical History: Fibromyalgia, Musculoskeletal Disorder Additional Family Medical History / Comment(s): MULTIPLE SCLEROSIS Mother Family Medical History: Coronary Artery Disease (CAD), CVA/TIA, Diabetes Mellitus Additional Family Medical History / Comment(s): BIPOLAR. PARKINSONS Father Family Medical History: Cancer Additional Family Medical History / Comment(s): colon cancer General Exam Limitations: no limitations General appearance: alert, in no apparent distress Head exam: Present: atraumatic, normocephalic, normal inspection Eye exam: Present: normal appearance, PERRL, EOMI. Absent: scleral icterus, conjunctival injection, periorbital swelling ENT exam: Present: normal exam, mucous membranes moist Neck exam: Present: normal inspection. Absent: tenderness, meningismus, lymphadenopathy Respiratory exam: Present: normal lung sounds bilaterally. Absent: respiratory distress, wheezes, rales, rhonchi, stridor Cardiovascular Exam: Present: regular rate, normal rhythm, normal heart sounds. Absent: systolic murmur, diastolic murmur, rubs, gallop, clicks GI/Abdominal exam: Present: soft, normal bowel sounds. Absent: distended, tenderness, guarding, rebound, rigid Extremities exam: Present: normal inspection, full ROM, normal capillary refill. Absent: tenderness, pedal edema, joint swelling, calf tenderness Back exam: Present: normal inspection Neurological exam: Present: alert, oriented X3, CN II-XII intact Psychiatric exam: Present: normal affect, normal mood Skin exam: Present: warm, dry, intact, normal color. Absent: rash Course Vital Signs 08/08/19 08/08/19 21:05 22:47 Temperature 97.8 F 98.7 F Pulse Rate 84 74 Respiratory 18 18 Rate Blood Pressure 164/92 145/70 O2 Sat by Pulse 98 100 Oximetry - Reevaluation(s) Reevaluation #1: Medical records reviewed Patient monitored in the emergency department, no complaints Patient eating and drinking Medical Decision Making - Medical Decision Making 39 female who presented with low blood sugar was concerned about further patient presents for evaluation she is able to eat and drink here in the ER monitored and can be discharged home - Lab Data Lab Results 08/08/19 08/08/19 Range/Units 21:09 22:02 POC Glucose (mg/dL) 87 95 (75-99) mg/dL POC Glu [employer] ID Mei Pereira Johnson [place] Disposition Clinical Impression: Hypoglycemia Disposition: HOME SELF-CARE Condition: Good Instructions (If sedation given, give patient instructions): Hypoglycemia in a Person with Diabetes (ED) Is patient prescribed a controlled substance at d/c from ED?: No Referrals: Ubaldo Goldsmith MD [Primary Care Provider] - 1-2 days
[2019-08-08 21:11] LABS: Glucose,Whole Blood 87 mg/dL (75-99)
[2019-08-08 22:04] LABS: Glucose,Whole Blood 95 mg/dL (75-99)
[2019-08-08] MEDS ORDERED: FAMOTIDINE 20 MG/2 ML VIAL IV STA (22:24)
[2019-08-08] MEDS ORDERED: diphenhydrAMINE 50 MG/ML 1 ML VIAL IVP STA (22:24)
[2019-08-08] MEDS ORDERED: RACEPINEPHRINE 2.25% NEB 0.5 ML NEBU INHALATION STA (22:24)
[2019-08-08] MEDS ORDERED: DEXAMETHASONE SOD PHOSPHATE 10 MG/ML 1 ML VIAL IV STA (22:24)
[2019-08-08] MEDS ORDERED: SODIUM CHLORIDE 0.9% 1,000 ML IV STA (22:24)
[2019-08-08 22:48] VITALS: BP 145/70; PULSE 74; TEMP 98.7
== END 2019-08-08 22:48 | disposition home or self-care (01) ==
LOC: EC 21:02
DX: E11.649 Type 2 diabetes mellitus with hypoglycemia without coma (principal); E78.5 Hyperlipidemia, unspecified; K21.9 Gastro-esophageal reflux disease without esophagitis; I10 Essential (primary) hypertension; E07.9 Disorder of thyroid, unspecified; F41.9 Anxiety disorder, unspecified; J45.909 Unspecified asthma, uncomplicated; F31.9 Bipolar disorder, unspecified; F43.10 Post-traumatic stress disorder, unspecified; F17.200 Nicotine dependence, unspecified, uncomplicated; Z79.84 Long term (current) use of oral hypoglycemic drugs; Z79.82 Long term (current) use of aspirin; Z79.890 Hormone replacement therapy; Z79.899 Other long term (current) drug therapy; Z88.0 Allergy status to penicillin; Z88.1 Allergy status to other antibiotic agents; Z88.6 Allergy status to analgesic agent; Z88.8 Allergy status to other drugs, medicaments and biological substances
CPT/HCPCS: 36415; 99285

== ENCOUNTER 2019-09-04 23:46 | Emergency (ER) | payer OTHER ==
[2019-09-05 00:37] LABS: Anisocytosis Slight; Basophils # (A) 0.1 k/uL (0-0.2); Basophils % (A) 1 %; Eosinophils # (A) 0.3 k/uL (0-0.7); Eosinophils % (A) 4 %; HCT 41.9 % (34.0-46.0); HGB 12.9 gm/dL (11.4-16.0); Hypochromasia Slight; Lymphocytes # (A) 2.9 k/uL (1.0-4.8); Lymphocytes % (A) 37 %; MCH 24.4 pg (25.0-35.0); MCHC 30.7 g/dL (31.0-37.0); MCV 79.6 fL (80.0-100.0); Mean Platelet Volume 7.2; Microcytosis Slight; Monocytes # (A) 0.3 k/uL (0-1.0); Monocytes % (A) 4 %; Neutrophils # (A) 4.3 k/uL (1.3-7.7); Neutrophils % (A) 54 %; Platelet Count 316 k/uL (150-450); RBC 5.26 m/uL (3.80-5.40); RDW 17.1 % (11.5-15.5); WBC 7.9 k/uL (3.8-10.6)
[2019-09-05 00:47] LABS: ALT 36 U/L (4-34); AST 39 U/L (14-36); African American GFR (CKD) >90 (>60 ml/min/1.73 sqM); Albumin 4.1 g/dL (3.5-5.0); Alkaline Phosphatase 81 U/L (38-126); Anion Gap 8 mmol/L; Blood Urea Nitrogen 8 mg/dL (7-17); Calcium 9.2 mg/dL (8.4-10.2); Carbon Dioxide 23 mmol/L (22-30); Chloride 107 mmol/L (98-107); Glucose 109 mg/dL (74-99); Magnesium 1.8 mg/dL (1.6-2.3); Non-African American GFR(CKD) >90 (>60 ml/min/1.73 sqM); Potassium 3.8 mmol/L (3.5-5.1); Sodium 138 mmol/L (137-145); Total Bilirubin 0.2 mg/dL (0.2-1.3); Total Protein 6.7 g/dL (6.3-8.2)
--- NOTE | 2019-09-05 00:52 | ED ---
Extremity Problem HPI - General Chief complaint: Extremity Problem,Nontraumatic Stated complaint: Feet Swelling Time Seen by Provider: 09/05/19 00:10 Source: patient Mode of arrival: ambulatory Limitations: no limitations - History of Present Illness Initial comments: 39-year-old female patient presents to the emergency department today for evaluation of bilateral lower extremity edema. Patient states that over the last 24 hours she has had swelling to her legs. States that she did try to keep him up for most of the day today which did not help. States her skin feels tightness painful when she walks. She denies any calf pain. Denies shortness of breath or chest pain. Denies history of similar symptoms. Denies excessive sodium in her diet. Patient denies any recent rash, fever, chills, cough, abdominal pain, nausea, vomiting, diarrhea, constipation, back pain, numbness, tingling, dizziness, weakness, hematuria, dysuria, urinary urgency, urinary frequency, headache, visual changes, or any other complaints. - Related Data Home Medications Medication Instructions Recorded Confirmed Lisinopril [Zestril] 10 mg PO DAILY 04/30/18 04/16/19 metFORMIN HCL [Glucophage Xr] 500 mg PO BID 04/30/18 04/16/19 Levothyroxine Sodium [Tirosint] 400 mcg PO DAILY 07/09/18 04/16/19 Atorvastatin [Lipitor] 40 mg PO DAILY 09/15/18 04/16/19 Aspirin [Adult Low Dose Aspirin EC] 81 mg PO DAILY 10/30/18 04/16/19 Acetaminophen Tab [Tylenol Tab] 650 mg PO Q4H PRN 03/29/19 04/16/19 Ergocalciferol [Vitamin D2] 50,000 unit PO Q30D 03/29/19 04/16/19 Omeprazole [PriLOSEC] 20 mg PO AC-BID 03/29/19 04/16/19 Topamax(Unknown Dose) 1 tab PO BID 03/29/19 04/16/19 Umeclidinium [place] [Incruse 2 puff INHALATION DAILY 03/29/19 04/16/19 Ellipta] Zyprexa(Unknown Dose) 1 tab PO DAILY 03/29/19 04/16/19 Previous Rx's Medication Instructions Recorded Hydrocodone/Acetaminophen [[place] 1 each PO Q6HR PRN #10 tab 03/31/19 5325] Allergies Allergy/AdvReac Type Severity Reaction Status Date / Time cephalexin [From Keflex] Allergy Anaphylaxis Verified 09/05/19 00:03 clindamycin Allergy Anaphylaxis Verified 09/05/19 00:03 diphenhydramine Allergy Anaphylaxis Verified 09/05/19 00:03 [From Benadryl] Penicillins Allergy Anaphylaxis Verified 09/05/19 00:03 quetiapine [From Seroquel] Allergy Rash/Hives Verified 09/05/19 00:03 rofecoxib [From Vioxx] Allergy Anaphylaxis Verified 09/05/19 00:03 tramadol Allergy Rash/Hives Verified 09/05/19 00:03 varenicline tartrate Allergy Confusion Verified 09/05/19 00:03 [From Chantix] Review of Systems ROS Statement: Those systems with pertinent positive or pertinent negative responses have been documented in the HPI. ROS Other: All systems not noted in ROS Statement are negative. Past Medical History Past Medical History: Asthma, Diabetes Mellitus, GERD/Reflux, Hyperlipidemia, Hypertension, Thyroid Disorder Additional Past Medical History / Comment(s): nonalcoholic fatty liver, edema lower legs/feet History of Any Multi-Drug Resistant Organisms: None Reported Past Surgical History: Section, Orthopedic Surgery Additional Past Surgical History / Comment(s): C-SEC X 3, left knee, RT KNEE SX-08/2018, LT [facility] Past Anesthesia/Blood Transfusion Reactions: No Reported Reaction Past Psychological History: Anxiety, Bipolar, Depression, PTSD Smoking Status: Current every day smoker Past Alcohol Use History: None Reported Past Drug Use History: None Reported - Past Family History Sister(s) Family Medical History: Fibromyalgia, Musculoskeletal Disorder Additional Family Medical History / Comment(s): MULTIPLE SCLEROSIS Mother Family Medical History: Coronary Artery Disease (CAD), CVA/TIA, Diabetes Mellitu s Additional Family Medical History / Comment(s): BIPOLAR. PARKINSONS Father Family Medical History: Cancer Additional Family Medical History / Comment(s): colon cancer General Exam Limitations: no limitations General appearance: alert, in no apparent distress, other (This is a well- developed, well-nourished adult female patient in no acute distress. Vital signs upon presentation are temperature 98.1F, pulse 86, respirations 18, blood pressure 160/98, pulse ox 98% on room air.) Eye exam: Present: normal appearance, PERRL, EOMI. Absent: scleral icterus, conjunctival injection, periorbital swelling ENT exam: Present: normal exam, normal oropharynx, mucous membranes moist Respiratory exam: Present: normal lung sounds bilaterally. Absent: respiratory distress, wheezes, rales, rhonchi, stridor Cardiovascular Exam: Present: regular rate, normal rhythm, normal heart sounds. Absent: systolic murmur, diastolic murmur, rubs, gallop, clicks GI/Abdominal exam: Present: soft, normal bowel sounds. Absent: distended, tend erness, guarding, rebound, rigid Extremities exam: Present: normal inspection, full ROM, normal capillary refill, pedal edema, other (There is bilateral lower extremity edema, nonpitting to the lower legs and feet. Skin is otherwise pink, warm, dry. Cap refills less than 3 seconds. Pedal pulses are 2+ and equal bilaterally.). Absent: tenderness, joint swelling, calf tenderness Neurological exam: Present: alert, oriented X3, CN II-XII intact Psychiatric exam: Present: normal affect, normal mood Skin exam: Present: warm, dry, intact, normal color. Absent: rash Course Vital Signs 09/05/19 00:01 Temperature 98.1 F Pulse Rate 86 Respiratory 18 Rate Blood Pressure 160/98 O2 Sat by Pulse 98 Oximetry Medical Decision Making - Medical Decision Making 39-year-old female patient presents to the emergency department today for evaluation of bilateral lower extremity edema. Physical examination was nonpitting swelling to the bilateral lower legs. Neurovascular status is int act. No calf tenderness or redness. She is afebrile with normal vital signs. She has normal labs. She is given GURVINDER hose instructed to keep her legs elevated. She is instructed to follow-up with her primary care physician for recheck in 1-2 days. Return parameters were discussed in detail. She verbalizes understanding and agrees with this plan. - Lab Data Result diagrams: 09/05/19 00:28 09/05/19 00:28 Lab Results 09/05/19 09/05/19 Range/Units 00:28 00:28 WBC 7.9 (3.8-10.6) k/uL RBC 5.26 (3.80-5.40) m/uL Hgb 12.9 (11.4-16.0) gm/dL Hct 41.9 (34.0-46.0) % MCV 79.6 L (80.0-100.0) fL MCH 24.4 L (25.0-35.0) pg MCHC 30.7 L (31.0-37.0) g/dL RDW 17.1 H (11.5-15.5) % Plt Count 316 (150-450) k/uL Neutrophils % 54 % Lymphocytes % 37 % Monocytes % 4 % Eosinophils % 4 % Basophils % 1 % Neutrophils # 4.3 (1.3-7.7) k/uL Lymphocytes # 2.9 (1.0-4.8) k/uL Monocytes # 0.3 (0-1.0) k/uL Eosinophils # 0.3 (0-0.7) k/uL Basophils # 0.1 (0-0.2) k/uL Hypochromasia Slight Anisocytosis Slight Microcytosis Slight Sodium 138 (137-145) mmol/L Potassium 3.8 (3.5-5.1) mmol/L Chloride 107 (98-107) mmol/L Carbon Dioxide 23 (22-30) mmol/L Anion Gap 8 mmol/L BUN 8 (7-17) mg/dL Creatinine 0.75 (0.52-1.04) mg/dL Est GFR (CKD-EPI)AfAm >90 (>60 ml/min/1.73 sqM) Est GFR (CKD-EPI)NonAf >90 (>60 ml/min/1.73 sqM) Glucose 109 H (74-99) mg/dL Calcium 9.2 (8.4-10.2) mg/dL Magnesium 1.8 (1.6-2.3) mg/dL Total Bilirubin 0.2 (0.2-1.3) mg/dL AST 39 H (14-36) U/L ALT 36 H (4-34) U/L Alkaline Phosphatase 81 (38-126) U/L Total Protein 6.7 (6.3-8.2) g/dL Albumin 4.1 (3.5-5.0) g/dL Disposition Clinical Impression: Lower extremity edema Disposition: HOME SELF-CARE Condition: Good Instructions (If sedation given, give patient instructions): Leg Edema (ED) Additional Instructions: Wear compression stockings during the day, remove at night before bed. Keep legs elevated as much as possible. Increase fluids. Follow-up with your primary care physician for recheck in 1-2 days. Return to the emergency department immediately for any new, worsening, or concerning symptoms. Is patient prescribed a controlled substance at d/c from ED?: No Referrals: Ubaldo Goldsmith MD [Primary Care Provider] - 1-2 days Time of Disposition: 00:52
[2019-09-05 02:25] VITALS: BP 150/90; PULSE 67; RESP 17; TEMP 97
== END 2019-09-05 01:10 | disposition home or self-care (01) ==
LOC: EC 23:46
DX: R60.0 Localized edema (principal); M79.89 Other specified soft tissue disorders; J45.909 Unspecified asthma, uncomplicated; E11.9 Type 2 diabetes mellitus without complications; F31.9 Bipolar disorder, unspecified; K21.9 Gastro-esophageal reflux disease without esophagitis; E78.5 Hyperlipidemia, unspecified; E07.9 Disorder of thyroid, unspecified; Z79.84 Long term (current) use of oral hypoglycemic drugs; Z79.890 Hormone replacement therapy; Z79.82 Long term (current) use of aspirin; Z79.51 Long term (current) use of inhaled steroids; F17.200 Nicotine dependence, unspecified, uncomplicated; Z88.1 Allergy status to other antibiotic agents; Z88.8 Allergy status to other drugs, medicaments and biological substances; Z88.0 Allergy status to penicillin; Z88.5 Allergy status to narcotic agent; Z87.19 Personal history of other diseases of the digestive system; Z82.49 Family history of ischemic heart disease and other diseases of the circulatory system
CPT/HCPCS: 36415; 80053; 83735; 85025; 99283

== ENCOUNTER → 2019-09-15 | Outpatient (CLI) | payer OTHER ==
[2019-09-15 14:26] LABS: Anisocytosis Slight; Basophils # (A) 0.1 k/uL (0-0.2); Basophils % (A) 1 %; Eosinophils # (A) 0.2 k/uL (0-0.7); Eosinophils % (A) 2 %; HCT 44.5 % (34.0-46.0); HGB 13.7 gm/dL (11.4-16.0); Hypochromasia Slight; Lymphocytes # (A) 2.6 k/uL (1.0-4.8); Lymphocytes % (A) 26 %; MCH 24.6 pg (25.0-35.0); MCHC 30.9 g/dL (31.0-37.0); MCV 79.6 fL (80.0-100.0); Mean Platelet Volume 6.9; Microcytosis Slight; Monocytes # (A) 0.6 k/uL (0-1.0); Monocytes % (A) 5 %; Neutrophils # (A) 6.8 k/uL (1.3-7.7); Neutrophils % (A) 66 %; Platelet Count 353 k/uL (150-450); RBC 5.59 m/uL (3.80-5.40); RDW 16.6 % (11.5-15.5); WBC 10.4 k/uL (3.8-10.6)
== END | disposition home or self-care (01) ==
LOC: LABPAT 12:59
PROVIDERS: ATTEND Orthopaedic Surgery
DX: Z01.818 Encounter for other preprocedural examination (principal); G56.01 Carpal tunnel syndrome, right upper limb
CPT/HCPCS: 80051; 85025

== ENCOUNTER 2019-09-16 11:41 | Day surgery (SDC) | payer OTHER ==
[2019-09-14 12:24] VITALS: BMI 39.7
--- NOTE | 2019-09-15 14:51 | HP ---
HISTORY AND PHYSICAL DATE OF SURGERY: 09/16/2019 Nia Cruz is a 39-year-old patient seen with symptomatic right carpal tunnel syndrome. We discussed options of post decompression, right median nerve. Consent was obtained. PAST MEDICAL HISTORY: Asthma, [id number] diabetes, hypertension. PAST SURGICAL HISTORY: section. Decompression of the left median nerve. DAILY MEDICATIONS: Labetalol, lisinopril, metformin, ALLERGIES: ULTRAM, TYLENOL, PENICILLIN, CLINDAMYCIN, VIOXX, KEFLEX, VICODIN. SOCIAL HISTORY: She smokes cigarettes. PHYSICAL EVALUATION OF THE RIGHT WRIST: She has a positive carpal compression, positive carpal Tinel's causing numbness. Tender throughout the median nerve distribution. There is decreased sensation throughout the median nerve distribution. She has good radial pulse and good perfusion distally. RADIOGRAPHS: Revealed some osteoarthritic changes. Mild EMGs revealed carpal tunnel syndrome. IMPRESSION: Right carpal tunnel syndrome, hypertension, [id number] diabetes, asthma. PLAN: Decompression right median nerve. MMODL / IJN: [id number] /
[~2019-09-16 11:41] MED LIST changes: -DEXAMETHASONE SOD PHOSPHATE 10 MG/ML 1 ML VIAL IV ONE; -HYDROmorphone 0.5 MG/0.5 ML SYRINGE IVP PRN; +LACTATED RINGERS 1,000 ML IV SCH; -LIDOCAINE 1% 20 ML VIAL (10MG/ML) FOR IV START INTRADERMA PRN; -MIDAZOLAM 2 MG/2 ML VIAL IV PRN; -ONDANSETRON 4 MG/2 ML VIAL IVP ONE; +Pre Op ABX Message 1 EACH MISC MISCELLANE ONE; -VANCOMYCIN 1,750 MG in SODIUM CHLORIDE 0.9% 500 ML 500 ML IVPB ONE; -fentaNYL (PF) 50 MCG/ML 2 ML AMP IVP PRN
[2019-09-16 12:32] LABS: Glucose,Whole Blood 101 mg/dL (75-99)
[2019-09-16] MEDS ORDERED: ONDANSETRON 4 MG/2 ML VIAL ONE (12:36)
[2019-09-16 12:41] VITALS: TEMP 97.9
[2019-09-16] MEDS ORDERED: ONDANSETRON 4 MG/2 ML VIAL IVP ONE (12:41)
[2019-09-16] MEDS ORDERED: LIDOCAINE 1% (10MG/ML) FOR IV START INTRADERMA ONE (12:41)
[2019-09-16] MEDS ORDERED: DEXAMETHASONE SOD PHOSPHATE 10 MG/ML 1 ML VIAL IV ONE (12:42)
[2019-09-16] MEDS ORDERED: MIDAZOLAM 2 MG/2 ML VIAL ONE (13:07)
[2019-09-16] MEDS ORDERED: PROPOFOL 10 MG/ML 20 ML VIAL IV ONE (13:07)
[2019-09-16] MEDS ORDERED: fentaNYL (PF) 50 MCG/ML 2 ML AMP ONE (13:07)
[2019-09-16] MEDS ORDERED: BUPIVACAINE (PF) 0.25% 30 ML VIAL SQ ONE ×2 (13:21)
--- NOTE | 2019-09-16 13:42 | P.OP ---
Date of Procedure: 09/16/19 Preoperative Diagnosis: Right carpal tunnel syndrome Postoperative Diagnosis: Right carpal tunnel syndrome Procedure(s) Performed: Decompression right median nerve Anesthesia: MAC, local Surgeon: Mp Michaud Estimated Blood Loss (ml): 1 Pathology: none sent Condition: stable Disposition: PACU Indications for Procedure: 39-year-old patient seen with synthetic right carpal tunnel syndrome. After treatment options were discussed, she elected to proceed with decompression right median nerve. Operative Findings: See description of procedure Description of Procedure: The patient was taken to the operative suite. The patient underwent IV sedation by the department of anesthesia. Patient received preoperative IV antibiotics. A well-padded tourniquet was placed proximal right upper extremity. The right upper extremity was prepped and draped in the normal sterile orthopedic fashion. The proposed incision site was infiltrated with 10 mL quarter percent plain Marcaine. Once sufficient local analgesia was noted the extremity was elevated and tourniquet insufflated to 250. I now made a decision the distal volar wrist crease extending distally approximately 3 cm in line with the fourth metacarpal sharply through skin and then dissected down to the subcutaneous soft tissues and through the palmar fascia to the transverse carpal ligament. I made a small incision through the transverse carpal ligament. I now released the transverse carpal ligament proximally and distally with blunt Metzenbaums. We had complete release of transverse carpal ligament with good decompression of the nerve. There was good hemostasis. The wound was irrigated. The skin margins were proximal nylon suture. Sterile dressings were applied. The tourniquet was released with immediate capillary refill noted to digits. The patient was awakened and transferred to recovery stable condition having tolerated procedure well.
[2019-09-16 14:05] VITALS: BP 103/70; PULSE 70; RESP 20
== END 2019-09-16 14:30 | disposition home or self-care (01) ==
LOC: OR 11:41
PROVIDERS: ATTEND Orthopaedic Surgery
DX: G56.01 Carpal tunnel syndrome, right upper limb (principal); I10 Essential (primary) hypertension; J45.909 Unspecified asthma, uncomplicated; E11.9 Type 2 diabetes mellitus without complications; E66.01 Morbid (severe) obesity due to excess calories; F17.210 Nicotine dependence, cigarettes, uncomplicated; Z88.0 Allergy status to penicillin; Z88.1 Allergy status to other antibiotic agents; Z88.5 Allergy status to narcotic agent; Z88.6 Allergy status to analgesic agent; Z88.8 Allergy status to other drugs, medicaments and biological substances; Z79.82 Long term (current) use of aspirin; Z79.84 Long term (current) use of oral hypoglycemic drugs; Z79.890 Hormone replacement therapy; Z79.899 Other long term (current) drug therapy; Z98.890 Other specified postprocedural states; Z98.891 History of uterine scar from previous surgery; Z68.41 Body mass index [BMI] 40.0-44.9, adult
CPT/HCPCS: 64721; J2250; J1100; J2405; J3010; J2704

== ENCOUNTER → 2019-12-29 | Outpatient (CLI) | payer OTHER | END | disposition home or self-care (01) | LOC: LABWHC1 10:35 | PROVIDERS: ATTEND Family Medicine | DX: Z03.818 Encounter for observation for suspected exposure to other biological agents ruled out (principal) | CPT/HCPCS: U0003; C9803 ==

== ENCOUNTER 2020-06-06 08:17 | Day surgery (SDC) | payer OTHER ==
[2020-06-06] MEDS ORDERED: LACTATED RINGERS 1,000 ML IV ONE (09:45)
[2020-06-06] MEDS ORDERED: MIDAZOLAM 2 MG/2 ML VIAL ONE (09:50)
[2020-06-06] MEDS ORDERED: fentaNYL (PF) 50 MCG/ML 2 ML AMP ONE (09:50)
[2020-06-06] MEDS ORDERED: PROPOFOL 10 MG/ML 20 ML VIAL IV ONE (09:50)
[2020-06-06] MEDS ORDERED: LIDOCAINE 1% INJ 10MG/ML (20 ML MDV) ONE (09:50)
[2020-06-06 09:51] VITALS: RESP 16; TEMP 97.4
[2020-06-06] MEDS ORDERED: LACTATED RINGERS 1,000 ML IV SCH (09:52)
[2020-06-06] MEDS ORDERED: LIDOCAINE 1% (10MG/ML) FOR IV START INTRADERMA PRN (09:52)
[2020-06-06 09:54] LABS: Glucose,Whole Blood 108 mg/dL (75-99)
--- NOTE | 2020-06-06 10:19 | P.PCN ---
Date of Procedure: 06/06/20 Description of Procedure: Brief history: Patient is a pleasant 40-year-old female presenting for EGD and colonoscopy for evaluation of GERD and diarrhea. Patient reports symptoms of heartburn and GERD. She also reports diarrhea with up to 17 bowel movements daily with associated nighttime bowel movements. This alternate with constipation. She did have previous EGD and colonoscopy 10 years ago which she believes were normal Procedure performed: Esophagogastroduodenoscopy with biopsy Colonoscopy failed/aborted secondary to poor prep Estimated blood loss: Minimal. Preoperative diagnosis: GERD, diarrhea, last endoscopic evaluation 10 years ago per patient report Anesthesia: MAC Procedure: After informed consent was obtained from the patient was brought into the endoscopy unit and IV sedation was administered by anesthesia under continuous monitoring. Initially upper endoscopy was done. The Olympus GF 190 video endoscope was inserted into the mouth and esophagus intubated without any difficulty and was gradually advanced into the stomach and duodenum and careful ly examined. The bulb and second part of the duodenum appeared normal with biopsies taken. The scope was then withdrawn into the stomach adequately insufflated with air and upon careful examination the antrum and body, cardia and fundus appeared normal, except for some mild scattered erythema suggestive of mild gastritis with biopsies taken. The scope was then withdrawn into the esophagus. The GE junction was located at 40 cm to the incisors and biopsied. It appeared regular with no erythema erosions or ulcerations. Rest of the esophagus appeared normal. Patient tolerated the procedure well. At this time the patient continued to remain sedation. Initial digital rectal examination was normal. Olympus CF 190 video colonoscope was then inserted into the rectum and gradually advanced to the sigmoid colon at which time the procedure was aborted due to poor prep with solid formed stool throughout the visualized colon. The prep was poor with solid stool throughout prohibiting vis ualization of the mucosa. Random biopsies were taken of the left colon. The patient tolerated the procedure well. Impression: 1. Mild gastritis. Biopsies of the duodenum, antrum body and GE junction. 2. Failed/aborted colonoscopy secondary to poor prep with solid stool throughout the visualized colon. Random biopsies taken of the left colon in the setting of diarrhea. Recommendations: Findings of this examination were discussed with the patient as well as her family. Okay to resume diet. Okay to resume medications. Await pathology from biopsies. Follow up in the GI clinic as scheduled. Patient will require 2 day prep if she would like to pursue repeat colonoscopy.
[2020-06-06 10:45] VITALS: BP 147/89; PULSE 71
== END 2020-06-06 11:07 | disposition home or self-care (01) ==
LOC: ORWHC2ENDO 08:17
PROVIDERS: ATTEND Internal Medicine
DX: R19.7 Diarrhea, unspecified (principal); K59.00 Constipation, unspecified; D72.820 Lymphocytosis (symptomatic); K29.50 Unspecified chronic gastritis without bleeding; K21.9 Gastro-esophageal reflux disease without esophagitis; K08.89 Other specified disorders of teeth and supporting structures; I10 Essential (primary) hypertension; F17.210 Nicotine dependence, cigarettes, uncomplicated; E11.9 Type 2 diabetes mellitus without complications; E07.9 Disorder of thyroid, unspecified; Z98.890 Other specified postprocedural states; Z79.899 Other long term (current) drug therapy; Z79.82 Long term (current) use of aspirin; Z79.891 Long term (current) use of opiate analgesic; Z79.84 Long term (current) use of oral hypoglycemic drugs
CPT/HCPCS: 81025; 88305; 43239; 45331; J2250; J2001; J3010; J2704; 45380

== ENCOUNTER → 2021-05-24 | Outpatient (CLI) | payer OTHER ==
[2021-05-25 00:24] LABS: Anion Gap 15.4 mmol/L (10.00-18.00); Carbon Dioxide 18.4 mmol/L (20.0-27.5)
[2021-05-25 03:31] LABS: Basophils # (A) 0.07 X 10*3/uL (0.00-0.10); Eosinophils # (A) 0.15 X 10*3/uL (0.04-0.35); Eosinophils % (A) 2.1 %; HCT 39.1 % (37.2-46.3); HGB 12.1 g/dL (12.0-15.0); Immature Grans, Automated 0.8 %; Lymphocytes # (A) 2.54 X 10*3/uL (0.90-5.00); Lymphocytes % (A) 34.8 %; MCH 26.5 pg (27.0-32.0); MCHC 30.9 g/dL (32.0-37.0); MCV 85.6 fL (80.0-97.0); Mean Platelet Volume 11.6 fL (9.5-12.2); Monocytes # (A) 0.42 X 10*3/uL (0.20-1.00); Monocytes % (A) 5.8 %; NRBC Per 100 WBC 0.4 /100 WBCS (0.0-0.0); Neutrophils # (A) 4.06 X 10*3/uL (1.80-7.70); Neutrophils % (A) 55.5 %; Platelet Count 198 X 10*3/uL (140-440); RBC 4.57 X 10*6/uL (4.10-5.20); RDW 13.7 % (11.5-14.5)
[2021-05-25 03:32] LABS: RBC Morphology NORMAL
== END | disposition home or self-care (01) ==
LOC: LABPAT 14:23
PROVIDERS: ATTEND Orthopaedic Surgery
DX: Z01.812 Encounter for preprocedural laboratory examination (principal); M23.91 Unspecified internal derangement of right knee
CPT/HCPCS: 36415; 80051; 85025

== ENCOUNTER 2021-05-30 07:11 | Day surgery (SDC) | payer OTHER ==
[2021-05-24 16:32] VITALS: BMI 37.7
--- NOTE | 2021-05-29 19:29 | HP ---
HISTORY AND PHYSICAL DATE OF SURGERY: 05/30/2021 Nia Cruz is a 41-year-old patient seen with progressive right knee pain. We discussed options. She elected to proceed with right knee arthroscopy. Consent was obtained. PAST MEDICAL HISTORY: Hypertension, hyperlipidemia. PAST SURGICAL HISTORY: section, carpal tunnel surgery, knee arthroscopy. DAILY MEDICATIONS: Labetalol, lisinopril, metformin. ALLERGIES: ULTRAM, TYLENOL, CLINDAMYCIN, KEFLEX, VICODIN, VIOXX. SOCIAL HISTORY: She smokes one-third pack of cigarettes daily. PHYSICAL EVALUATION OF THE RIGHT KNEE: Her range of motion is zero to 120. Mild effusion. Tenderness along the medial joint line. Positive medial Quinn's. Ligaments stable. Hip rotation without pain. Distal neurovascular exam is intact. Right knee radiographs revealed mild osteoarthritic changes. Right knee MRI revealed an abnormal signal through the medial meniscus. IMPRESSION: Internal derangement of right knee with medial meniscal tear. PLAN: Right knee arthroscopy with partial medial meniscectomy and debridement. MMODL / IJN: [id number] /
[~2021-05-30 07:11] MED LIST changes: +DEXAMETHASONE SOD PHOSPHATE 4 MG/ML 1 ML VIAL IV ONE; +ONDANSETRON 4 MG/2 ML VIAL IVP ONE; -Pre Op ABX Message 1 EACH MISC MISCELLANE ONE; +VANCOMYCIN 1,750 MG in SODIUM CHLORIDE 0.9% 500 ML 500 ML IVPB PRN
[2021-05-30 08:20] LABS: Glucose,Whole Blood 111 mg/dL (75-99)
[2021-05-30] MEDS ORDERED: fentaNYL (PF) 50 MCG/ML 2 ML AMP ONE (09:12)
[2021-05-30] MEDS ORDERED: PROPOFOL 10 MG/ML 20 ML VIAL IV ONE (09:12)
[2021-05-30] MEDS ORDERED: SUCCINYLCHOLINE CHLORIDE VIAL 200 MG/10 ML VIAL IV ONE (09:12)
[2021-05-30] MEDS ORDERED: MIDAZOLAM 2 MG/2 ML VIAL ONE (09:12)
[2021-05-30] MEDS ORDERED: LABETALOL 5 MG/ML VIAL MDV ONE (09:12)
[2021-05-30] MEDS ORDERED: ALBUTEROL HFA INHALER INHALATION ONE (09:12)
[2021-05-30] MEDS ORDERED: LIDOCAINE 1% INJ 10MG/ML (20 ML MDV) ONE (09:12)
[2021-05-30] MEDS ORDERED: BUPIVACAIN-EPI 0.25%-1:200,000 30 ML VIAL INTRAARTIC ONE (09:17)
--- NOTE | 2021-05-30 10:03 | P.OP ---
Date of Procedure: 05/30/21 Preoperative Diagnosis: Internal derangement right knee Postoperative Diagnosis: 1. Tear medial and lateral meniscus right knee 2. 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 Grade 2 chondromalacia patella right knee 4. Reactive synovitis medial, lateral and suprapatellar compartments right knee Procedure(s) Performed: 1. Arthroscopic partial medial and lateral meniscectomy right knee 2. Arthroscopic chondroplasty lateral tibial plateau right knee 3. Arthroscopic chondroplasty patella right knee 4. Arthroscopic partial synovectomy medial, lateral and suprapatellar compartments right knee Anesthesia: LIZZYA, local Surgeon: Mp Michaud Estimated Blood Loss (ml): 6 Pathology: none sent Condition: stable Disposition: PACU Indications for Procedure: 41-year-old patient seen with progressive right knee pain. After having treatment options discussed, she elected to proceed with arthroscopy. Operative Findings: See description of procedure Description of Procedure: Patient was taken to the operative suite. Patient underwent a general anesthetic by the department of anesthesia. Patient was given preoperative antibiotics. The right lower extremity was placed in a well-padded arthroscopic leg gardner. The right leg was prepped and draped in the normal sterile orthopedic fashion. A lateral parapatellar and suprapatellar incision was made. Trochars were inserted. Arthroscopy was initiated. Suprapatellar pouch revealed diffuse thick reactive synovitis. The patellofemoral joint appeared to articulate congruently. There were grade 2 chondromalacia changes of the patella with some osteochondral tears present. The scope was guided into the medial gutter. No loose bodies or plica were identified. The scope was then guided into the medial compartment. A medial parapatellar incision was made. Trocar inserted followed by probe. There was a small radial tear posterior horn medial meniscus. There were grade 1, changes about the medial femoral condyle. There was thick reactive synovitis anteriorly. I performed a partial medial meniscectomy getting down to stable meniscal tissue. I performed a partial synovectomy decompressing the reactive synovitis. The shaver was removed. The residual meniscus was stable. There was good decompression of the synovitis. Scope and probe were then guided into the intercondylar notch. Cruciates were identified, probed and found to be stable. The scope and probe were then guided into lateral compartment. There was a radial tear posterior horn lateral meniscus. There were grade 2 chondromalacia changes of the lateral tibial plateau with diffuse osteochondral flap tears present. There was thick reactive synovitis anteriorly. I performed a partial lateral meniscectomy getting down to stable meniscal tissue. I performed a chondroplasty of the lateral tibial plateau getting down to stable osteochondral tissue. I performed a partial synovectomy decompressing the thick reactive synovitis. The shaver was now removed. The residual meniscus was stable. The residual osteochondral surface appeared stable. There was good decompression of the synovitis. The scope was in guided back into the suprapatellar compartment. I introduced a motorized shaver into the suprapatellar compartment. I debrided some piecemeal fragments of meniscus that I encountered. I performed a chondroplasty of the patella getting down to stable osteochondral tissue. I performed a partial synovectomy decompressing the reactive synovitis throughout the suprapatellar compartment. Shaver was now removed. There was good decompression of the synovitis. The residual osteochondral surface appeared stable. There were no loose bodies. I took one more look around the entire knee, no residual debris. Instruments were now removed from the joint. The joint was infiltrated with .25% Marcaine. Steri-Strips were applied to the portal sites. Sterile dressings were applied. The patient was placed into a GURVINDER hose. No tourniquet was utilized. The patient was awakened, transferred to a bed and taken to recovery stable satisfactory condition.
[2021-05-30 10:12] VITALS: TEMP 97.5
[2021-05-30] MEDS: HYDROmorphone 0.5 MG/0.5 ML SYRINGE IVP PRN ×2 (10:24→10:49)
[2021-05-30] MEDS ORDERED: LACTATED RINGERS 1,000 ML IV ONE ×2 (10:25)
[2021-05-30 10:58] LABS: Glucose,Whole Blood 147 mg/dL (75-99)
[2021-05-30 11:44] VITALS: BP 116/75; RESP 18
[2021-05-30 12:26] VITALS: PULSE 69
== END 2021-05-30 12:45 | disposition home or self-care (01) ==
LOC: OR 07:11
PROVIDERS: ATTEND Orthopaedic Surgery
DX: S83.281A Other tear of lateral meniscus, current injury, right knee, initial encounter (principal); S83.241A Other tear of medial meniscus, current injury, right knee, initial encounter; X58.XXXA Exposure to other specified factors, initial encounter; M94.261 Chondromalacia, right knee; M22.41 Chondromalacia patellae, right knee; M65.861 Other synovitis and tenosynovitis, right lower leg; I10 Essential (primary) hypertension; E78.5 Hyperlipidemia, unspecified; Z88.1 Allergy status to other antibiotic agents; Z88.8 Allergy status to other drugs, medicaments and biological substances; Z88.5 Allergy status to narcotic agent; Z79.84 Long term (current) use of oral hypoglycemic drugs; F17.210 Nicotine dependence, cigarettes, uncomplicated
CPT/HCPCS: 29880; 81025; J2250; J3370; J0330; J1100; J2405; J2001; J3010; J2704; J1170

== ENCOUNTER 2021-05-30 17:56 | Emergency (ER) | payer OTHER ==
[2021-05-30] MEDS ORDERED: methylPREDNISolone SOD SUCCI 125 MG/2 ML VIAL IV STA (18:05)
[2021-05-30] MEDS ORDERED: FAMOTIDINE 20 MG/2 ML VIAL IV STA (18:05)
--- NOTE | 2021-05-30 18:22 | ED ---
General Adult HPI - General Chief complaint: Allergic Reaction Stated complaint: Allergic Reaction Time Seen by Provider: 05/30/21 18:01 Source: patient, EMS, RN notes reviewed, old records reviewed Mode of arrival: EMS Limitations: no limitations - History of Present Illness Initial comments: 41-year-old female presenting for suspected ALLERGIC reaction. Patient had received an IV antibiotic just prior to discharge from this facility. She is uncertain what she had received. She had a arthroscopic procedure of her right knee with orthopedics today. She developed a flushed feeling, rash, and itchy swollen throat. She presented by paramedics. She had stable vitals during transport. She does have multiple drug ALLERGIES and is uncertain what antibiotic was initiated. - Related Data Home Medications Medication Instructions Recorded Confirmed Aspirin [Adult Low Dose Aspirin EC] 81 mg PO DAILY 10/30/18 05/30/21 Acetaminophen Tab [Tylenol Tab] 975 mg PO Q6H PRN 03/29/19 05/30/21 Ergocalciferol [Vitamin D2] 50,000 unit PO Q30D 03/29/19 05/30/21 Umeclidinium [place] [Incruse 2 puff INHALATION RT-BID 03/29/19 05/30/21 Ellipta] Ferrous Sulfate [Feosol] 325 mg PO TID 09/14/19 05/30/21 hydrALAZINE HCL [Apresoline] 100 mg PO TID 09/16/19 05/30/21 Loratadine 10 mg PO DAILY PRN 05/24/21 05/30/21 Losartan Potassium [Cozaar] 100 mg PO DAILY 05/24/21 05/30/21 Lurasidone HCl [Latuda] 60 mg PO HS 05/24/21 05/30/21 Metoprolol Succinate (ER) [Toprol 100 mg PO DAILY 05/24/21 05/30/21 Xl] Spironolactone 50 mg PO DAILY 05/24/21 05/30/21 amLODIPine [Norvasc] 10 mg PO DAILY 05/24/21 05/30/21 cloNIDine HCL [Catapres] 0.3 mg PO TID 05/24/21 05/30/21 Atorvastatin Calcium [Lipitor] 80 mg PO HS 05/30/21 05/30/21 Furosemide [Lasix] 40 mg PO DAILY 05/30/21 05/30/21 HYDROcodone/APAP 7.5-325MG [[place] 1 tab PO Q6HR PRN 05/30/21 05/30/21 7.5] Thyroid,Pork [Sponge Buffer Thyroid] 120 mg PO DAILY 05/30/21 05/30/21 metFORMIN HCL [Glucophage] 1,000 mg PO BID 05/30/21 05/30/21 Allergies Allergy/AdvReac Type Severity Reaction Status Date / Time cephalexin [From Keflex] Allergy Anaphylaxis Verified 05/30/21 19:57 clindamycin Allergy Anaphylaxis Verified 05/30/21 19:57 diphenhydramine Allergy Anaphylaxis Verified 05/30/21 19:57 [From Benadryl] Penicillins Allergy Anaphylaxis Verified 05/30/21 19:57 quetiapine [From Seroquel] Allergy Rash/Hives Verified 05/30/21 19:57 rofecoxib [From Vioxx] Allergy Anaphylaxis Verified 05/30/21 19:57 tramadol Allergy Rash/Hives Verified 05/30/21 19:57 varenicline tartrate Allergy Confusion Verified 05/30/21 19:57 [From Chantix] Review of Systems ROS Statement: Those systems with pertinent positive or pertinent negative responses have been documented in the HPI. ROS Other: All systems not noted in ROS Statement are negative. Past Medical History Past Medical History: Asthma, Diabetes Mellitus, GERD/Reflux, Hyperlipidemia, Hypertension, Thyroid Disorder Additional Past Medical History / Comment(s): nonalcoholic fatty liver, edema lower legs/feet History of Any Multi-Drug Resistant Organisms: None Reported Past Surgical History: Section, Orthopedic Surgery Additional Past Surgical History / Comment(s): C-SEC X 3, left knee, RT KNEE SX-08/2018, LT CTR, rt miniscus Past Anesthesia/Blood Transfusion Reactions: No Reported Reaction Past Psychological History: Anxiety, Bipolar, Depression, PTSD Smoking Status: Current every day smoker Past Alcohol Use History: None Reported Past Drug Use History: None Reported - Past Family History Sister(s) Family Medical History: Fibromyalgia, Musculoskeletal Disorder Additional Family Medical History / Comment(s): MULTIPLE SCLEROSIS Mother Family Medical History: Coronary Artery Disease (CAD), CVA/TIA, Diabetes Mellitus Additional Family Medical History / Comment(s): BIPOLAR. PARKINSONS DISEASE Father Family Medical History: Cancer Additional Family Medical History / Comment(s): colon cancer General Exam Limitations: no limitations General appearance: alert, in no apparent distress Head exam: Present: atraumatic, normocephalic Eye exam: Present: normal appearance, PERRL ENT exam: Present: other (Pharyngeal erythema with possibly some tongue swelling.) Respiratory exam: Present: normal lung sounds bilaterally. Absent: respiratory distress, wheezes Cardiovascular Exam: Present: regular rate, normal rhythm GI/Abdominal exam: Present: soft. Absent: distended, tenderness, guarding Extremities exam: Present: other (Bandages clean dry and intact right knee) Neurological exam: Present: alert, oriented X3, CN II-XII intact. Absent: motor sensory deficit Skin exam: Present: warm, dry, intact, erythema (Face). Absent: cyanosis, diaphoretic Course Vital Signs 05/30/21 05/30/21 05/30/21 18:00 18:38 19:07 Pulse Rate 85 84 Respiratory 18 18 16 Rate Blood Pressure 171/94 137/81 O2 Sat by Pulse 96 98 Oximetry Medical Decision Making - Medical Decision Making 41-year-old female with suspected ALLERGIC reaction. Patient did receive vancomycin today. This is the only antibiotic I can see that the patient received by review the medical record. She is given Pepcid and steroids. Her symptoms do improve while in the emergency department. Vancomycin will be added to her ALLERGY list. Disposition Clinical Impression: Allergic reaction to drug Disposition: HOME SELF-CARE Condition: Fair Instructions (If sedation given, give patient instructions): General Allergic Reaction (ED) Is patient prescribed a controlled substance at d/c from ED?: No Referrals: Ubaldo Goldsmith MD [Primary Care Provider] - 1-2 days Mp Michaud DO [Family Provider] - 1-2 days Time of Disposition: 20:09
[2021-05-30 19:57] VITALS: BP 137/81; PULSE 84; RESP 16
== END 2021-05-30 20:29 | disposition home or self-care (01) ==
LOC: EC 17:56
DX: T36.95XA Adverse effect of unspecified systemic antibiotic, initial encounter (principal); J45.909 Unspecified asthma, uncomplicated; I10 Essential (primary) hypertension; E11.9 Type 2 diabetes mellitus without complications; Z88.1 Allergy status to other antibiotic agents; Z88.8 Allergy status to other drugs, medicaments and biological substances; Z88.0 Allergy status to penicillin; Z88.5 Allergy status to narcotic agent
CPT/HCPCS: 99283; 96374; 96375; J2930

== ENCOUNTER 2022-06-20 07:24 | Emergency (ER) | payer OTHER ==
[2022-06-20 07:32] VITALS: RESP 18; TEMP 98
[2022-06-20] MEDS ORDERED: PANTOPRAZOLE 40 MG/10 ML VIAL IVP STA (07:46)
[2022-06-20] MEDS ORDERED: HYDROmorphone 1 MG/ML 1 ML SYRINGE IVP STA (07:47)
--- NOTE | 2022-06-20 07:49 | ED ---
General Adult HPI - General Chief complaint: Abdominal Pain Stated complaint: Lower Left side pain/abd Time Seen by Provider: 06/20/22 07:37 Source: patient, RN notes reviewed Mode of arrival: ambulatory Limitations: no limitations - History of Present Illness Initial comments: Patient is a pleasant 42-year-old female presenting to the emergency Department with complaints of left abdominal and back pain. Onset of symptoms was around 4 days ago. Symptoms have slowly progressively worsened since that time. Discomfort did start left lower back and has now extended to the left abdomen. No constipation or diarrhea. Patient denies possible . No nausea vomiting. No fever. No history of similar symptoms previously. Symptoms are positional. Patient states discomfort is more severe in the back than the abdomen. - Related Data Home Medications Medication Instructions Recorded Confirmed Aspirin [Adult Low Dose Aspirin EC] 81 mg PO DAILY 10/30/18 05/30/21 Acetaminophen Tab [Tylenol Tab] 975 mg PO Q6H PRN 03/29/19 05/30/21 Ergocalciferol [Vitamin D2] 50,000 unit PO Q30D 03/29/19 05/30/21 Umeclidinium [place] [Incruse 2 puff INHALATION RT-BID 03/29/19 05/30/21 Ellipta] Ferrous Sulfate [Feosol] 325 mg PO TID 09/14/19 05/30/21 hydrALAZINE HCL [Apresoline] 100 mg PO TID 09/16/19 05/30/21 Loratadine 10 mg PO DAILY PRN 05/24/21 05/30/21 Losartan Potassium [Cozaar] 100 mg PO DAILY 05/24/21 05/30/21 Lurasidone [Latuda] 60 mg PO HS 05/24/21 05/30/21 Metoprolol Succinate (ER) [Toprol 100 mg PO DAILY 05/24/21 05/30/21 Xl] Spironolactone 50 mg PO DAILY 05/24/21 05/30/21 amLODIPine [Norvasc] 10 mg PO DAILY 05/24/21 05/30/21 cloNIDine HCL [Catapres] 0.3 mg PO TID 05/24/21 05/30/21 Atorvastatin Calcium [Lipitor] 80 mg PO HS 05/30/21 05/30/21 Furosemide [Lasix] 40 mg PO DAILY 05/30/21 05/30/21 HYDROcodone/APAP 7.5-325MG [[place] 1 tab PO Q6HR PRN 05/30/21 05/30/21 7.5] Thyroid,Pork [Hand [place] Thyroid] 120 mg PO DAILY 05/30/21 05/30/21 metFORMIN HCL [Glucophage] 1,000 mg PO BID 05/30/21 05/30/21 Previous Rx's Medication Instructions Recorded Cyclobenzaprine [Flexeril] 10 mg PO TID PRN #12 tablet 06/20/22 Allergies Allergy/AdvReac Type Severity Reaction Status Date / Time cephalexin [From Keflex] Allergy Anaphylaxis Verified 06/20/22 07:31 clindamycin Allergy Anaphylaxis Verified 06/20/22 07:31 diphenhydramine Allergy Anaphylaxis Verified 06/20/22 07:31 [From Benadryl] Penicillins Allergy Anaphylaxis Verified 06/20/22 07:31 quetiapine [From Seroquel] Allergy Rash/Hives Verified 06/20/22 07:31 rofecoxib [From Vioxx] Allergy Anaphylaxis Verified 06/20/22 07:31 tramadol Allergy Rash/Hives Verified 06/20/22 07:31 vancomycin Allergy Dyspnea Verified 06/20/22 07:31 varenicline tartrate Allergy Confusion Verified 06/20/22 07:31 [From Chantix] Review of Systems ROS Statement: Those systems with pertinent positive or pertinent negative responses have been documented in the HPI. ROS Other: All systems not noted in ROS Statement are negative. Constitutional: Denies: fever Eyes: Denies: eye pain ENT: Denies: ear pain Respiratory: Denies: cough Cardiovascular: Denies: chest pain Endocrine: Denies: fatigue Gastrointestinal: Reports: as per HPI, abdominal pain. Denies: nausea, vomiting, diarrhea Genitourinary: Denies: urgency, dysuria, hematuria Musculoskeletal: Reports: as per HPI, back pain Past Medical History Past Medical History: Asthma, Diabetes Mellitus, GERD/Reflux, Hyperlipidemia, Hypertension, Thyroid Disorder Additional Past Medical History / Comment(s): nonalcoholic fatty liver, edema lower legs/feet History of Any Multi-Drug Resistant Organisms: None Reported Past Surgical History: Section, Orthopedic Surgery Additional Past Surgical History / Comment(s): C-SEC X 3, left knee, RT KNEE SX-08/2018, LT CTR, rt miniscus Past Anesthesia/Blood Transfusion Reactions: No Reported Reaction Past Psychological History: Anxiety, Bipolar, Depression, PTSD Smoking Status: Current every day smoker Past Alcohol Use History: None Reported Past Drug Use History: None Reported - Past Family History Sister(s) Family Medical History: Fibromyalgia, Musculoskeletal Disorder Additional Family Medical History / Comment(s): MULTIPLE SCLEROSIS Mother Family Medical History: Coronary Artery Disease (CAD), CVA/TIA, Diabetes Mellitus Additional Family Medical History / Comment(s): BIPOLAR. PARKINSONS DISEASE Father Family Medical History: Cancer Additional Family Medical History / Comment(s): colon cancer General Exam Limitations: no limitations General appearance: alert, in no apparent distress Head exam: Present: normocephalic Eye exam: Present: normal appearance Neck exam: Present: normal inspection Respiratory exam: Present: normal lung sounds bilaterally Cardiovascular Exam: Present: regular rate, normal rhythm Expanded Peripheral pulses: 2+: Dorsalis Pedis (R), Dorsalis Pedis (L) GI/Abdominal exam: Present: soft, tenderness (Moderate tenderness left abdomen, more so middle to lower). Absent: distended Extremities exam: Present: normal inspection. Absent: pedal edema, calf tenderness Back exam: Present: tenderness (There is mild tenderness left lower lumbar region, lateral to spine) Neurological exam: Absent: motor sensory deficit Psychiatric exam: Present: normal affect, normal mood Skin exam: Present: normal color Course Vital Signs 06/20/22 06/20/22 07:30 09:06 Temperature 98 F Pulse Rate 74 62 Respiratory 18 18 Rate Blood Pressure 164/99 163/94 O2 Sat by Pulse 99 98 Oximetry Medical Decision Making - Medical Decision Making Was pt. sent in by a medical professional or institution (, PA, CHUTE LOADER, urgent care, hospital, or jail...) When possible be specific @ -No Did you speak to anyone other than the patient for history (EMS, parent, family, police, friend...)? What history was obtained from this source @ -No Did you review nursing and triage notes (agree or disagree)? Why? @ -I reviewed and agree with nursing and triage notes Were old charts reviewed (outside hosp., previous admission, EMS record, old EKG, old radiological studies, urgent care reports/EKG's, jail records)? Report findings @ -No old charts were reviewed Differential Diagnosis (chest pain, altered mental status, abdominal pain women, abdominal pain men, vaginal bleeding, weakness, fever, dyspnea, syncope, headache, dizziness, GI bleed, back pain, seizure, CVA, palpatations, mental health)? @ -Differential Back Pain: Strain, zoster, cauda equina syndrome, epidural abscess, vertebral osteomyelitis, discitis, fracture, subluxation, disc herniation, DJD, spinal stenosis, dissection, AAA, pancreatitis, peptic ulcer disease, pyelonephritis, kidney stone, this is not meant to be an all-inclusive list. EKG interpreted by me (3pts min.). @ -As above X-rays interpreted by me (1pt min.). @ -None done CT interpreted by me (1pt min.). @ -Report reviewed U/S interpreted by me (1pt. min.). @ -None done What testing was considered but not performed or refused? (CT, X-rays, U/S, labs)? Why? @ -None What meds were considered but not given or refused? Why? @ -None Did you discuss the management of the patient with other professionals (professionals i.e. , PA, CHUTE LOADER, lab, RT, psych nurse, social sciences lecturer, dry chain worker, teacher, surface to air weapons officer, case management coordinator)? Give summary @ -No Was smoking cessation discussed for >3mins.? @ -No Was critical care preformed (if so, how long)? @ -No Were there social determinants of health that impacted care today? How? (Homelessness, low income, unemployed, alcoholism, drug addiction, transportation, low edu. Level, literacy, decrease access to med. care, fpc, rehab)? @ -No Was there de-escalation of care discussed even if they declined (Discuss DNR or withdrawal of care, Hospice)? DNR status @ -No What co-morbidities impacted this encounter? (DM, HTN, Smoking, COPD, CAD, Cancer, CVA, ARF, Chemo, Hep., AIDS, mental health diagnosis, sleep apnea, morbid obesity)? @ -None Was patient admitted / discharged? Hospital course, mention meds given and route , prescriptions, significant lab abnormalities, going to OR and other pertinent info. @ -Patient reevaluated and feels significant better. Patient is having some discomfort still and originally did not want pain medication however later is receptive. Patient and family are updated on results and need for follow-up. Undiagnosed new problem with uncertain prognosis? @ -No Drug Therapy requiring intensive monitoring for toxicity (Heparin, Nitro, Insulin, Cardizem)? @ -No Were any procedures done? @ -No Diagnosis/symptom? @ -Back pain Acute, or Chronic, or Acute on Chronic? @ -Acute Uncomplicated (without systemic symptoms) or Complicated (systemic symptoms)? @ -default Side effects of treatment? @ -No Exacerbation, Progression, or Severe Exacerbation? @ -No Poses a threat to life or bodily function? How? (Chest pain, [place], [place], pneumonia, PE, COPD, DKA, ARF, appy, cholecystitis, CVA, Diverticulitis, Homicidal, Suicidal, threat to staff... and all critical care pts) @ -No - Lab Data Result diagrams: 06/20/22 07:59 06/20/22 07:59 Lab Results 06/20/22 06/20/22 06/20/22 Range/Units 07:59 07:59 07:59 WBC 7.3 (3.8-10.6) k/uL RBC 4.86 (3.80-5.40) m/uL Hgb 12.0 (11.4-16.0) gm/dL Hct 38.0 (34.0-46.0) % MCV 78.1 L (80.0-100.0) fL MCH 24.7 L (25.0-35.0) pg MCHC 31.6 (31.0-37.0) g/dL RDW 14.1 (11.5-15.5) % Plt Count 324 (150-450) k/uL MPV 7.5 Neutrophils % 62 % Lymphocytes % 27 % Monocytes % 7 % Eosinophils % 3 % Basophils % 1 % Neutrophils # 4.5 (1.3-7.7) k/uL Lymphocytes # 2.0 (1.0-4.8) k/uL Monocytes # 0.5 (0-1.0) k/uL Eosinophils # 0.2 (0-0.7) k/uL Basophils # 0.0 (0-0.2) k/uL Hypochromasia Slight PT 10.1 (9.0-12.0) sec INR 1.0 (<1.2) APTT 25.8 (22.0-30.0) sec Sodium (137-145) mmol/L Potassium (3.5-5.1) mmol/L Chloride (98-107) mmol/L Carbon Dioxide (22-30) mmol/L Anion Gap mmol/L BUN (7-17) mg/dL Creatinine (0.52-1.04) mg/dL Est GFR (CKD-EPI)AfAm (>60 ml/min/1.73 sqM) Est GFR (CKD-EPI)NonAf (>60 ml/min/1.73 sqM) Glucose (74-99) mg/dL Calcium (8.4-10.2) mg/dL Total Bilirubin (0.2-1.3) mg/dL AST (14-36) U/L ALT (4-34) U/L Alkaline Phosphatase (38-126) U/L Total Protein (6.3-8.2) g/dL Albumin (3.5-5.0) g/dL Amylase (30-110) U/L Lipase (23-300) U/L HCG, Quant mIU/mL Urine Color Light Yellow Urine Appearance Cloudy H (Clear) Urine pH 7.0 (5.0-8.0) Ur Specific [place] 1.034 (1.001-1.035) Urine Protein Trace H (Negative) Urine Glucose (UA) Negative (Negative) Urine Ketones Negative (Negative) Urine Blood Large H (Negative) Urine Nitrite Negative (Negative) Urine Bilirubin Negative (Negative) Urine Urobilinogen <2.0 (<2.0) mg/dL Ur Leukocyte Esterase Negative (Negative) Urine RBC 1 (0-5) /hpf Urine WBC 3 (0-5) /hpf Ur Squamous Epith Cells 9 H (0-4) /hpf Urine Mucus Rare H (None) /hpf 06/20/22 Range/Units 07:59 WBC (3.8-10.6) k/uL RBC (3.80-5.40) m/uL Hgb (11.4-16.0) gm/dL Hct (34.0-46.0) % MCV (80.0-100.0) fL MCH (25.0-35.0) pg MCHC (31.0-37.0) g/dL RDW (11.5-15.5) % Plt Count (150-450) k/uL MPV Neutrophils % % Lymphocytes % % Monocytes % % Eosinophils % % Basophils % % Neutrophils # (1.3-7.7) k/uL Lymphocytes # (1.0-4.8) k/uL Monocytes # (0-1.0) k/uL Eosinophils # (0-0.7) k/uL Basophils # (0-0.2) k/uL Hypochromasia PT (9.0-12.0) sec INR (<1.2) APTT (22.0-30.0) sec Sodium 137 (137-145) mmol/L Potassium 4.4 (3.5-5.1) mmol/L Chloride 102 (98-107) mmol/L Carbon Dioxide 25 (22-30) mmol/L Anion Gap 10 mmol/L BUN 13 (7-17) mg/dL Creatinine 0.89 (0.52-1.04) mg/dL Est GFR (CKD-EPI)AfAm >90 (>60 ml/min/1.73 sqM) Est GFR (CKD-EPI)NonAf 80 (>60 ml/min/1.73 sqM) Glucose 109 H (74-99) mg/dL Calcium 8.6 (8.4-10.2) mg/dL Total Bilirubin 0.4 (0.2-1.3) mg/dL AST 26 (14-36) U/L ALT 24 (4-34) U/L Alkaline Phosphatase 70 (38-126) U/L Total Protein 7.4 (6.3-8.2) g/dL Albumin 4.3 (3.5-5.0) g/dL Amylase 52 (30-110) U/L Lipase 109 (23-300) U/L HCG, Quant <2.4 mIU/mL Urine Color Urine Appearance (Clear) Urine pH (5.0-8.0) Ur Specific [place] (1.001-1.035) Urine Protein (Negative) Urine Glucose (UA) (Negative) Urine Ketones (Negative) Urine Blood (Negative) Urine Nitrite (Negative) Urine Bilirubin (Negative) Urine Urobilinogen (<2.0) mg/dL Ur Leukocyte Esterase (Negative) Urine RBC (0-5) /hpf Urine WBC (0-5) /hpf Ur Squamous Epith Cells (0-4) /hpf Urine Mucus (None) /hpf Disposition Clinical Impression: Low back pain Disposition: HOME SELF-CARE Condition: Stable Instructions (If sedation given, give patient instructions): Low Back Strain (ED), Acute Abdominal Pain (ED) Additional Instructions: Please do follow-up with your primary care physician in the next day or 2 for recheck. Prescription for muscle relaxers has been sent to pharmacy. Return for increased pain, weakness, fevers, worsening or changing symptoms or other concerns. Prescriptions: Cyclobenzaprine [Flexeril] 10 mg PO TID PRN #12 tablet PRN Reason: Pain Is patient prescribed a controlled substance at d/c from ED?: No Referrals: Ubaldo Goldsmith MD [Primary Care Provider] - 1-2 days Time of Disposition: 10:16
[2022-06-20 08:10] LABS: Basophils % (A) 1 %; Eosinophils # (A) 0.2 k/uL (0-0.7); Eosinophils % (A) 3 %; Hypochromasia Slight; Lymphocytes % (A) 27 %; MCH 24.7 pg (25.0-35.0); MCHC 31.6 g/dL (31.0-37.0); MCV 78.1 fL (80.0-100.0); Mean Platelet Volume 7.5; Monocytes # (A) 0.5 k/uL (0-1.0); Monocytes % (A) 7 %; Neutrophils # (A) 4.5 k/uL (1.3-7.7); Neutrophils % (A) 62 %; Platelet Count 324 k/uL (150-450); RBC 4.86 m/uL (3.80-5.40); RDW 14.1 % (11.5-15.5); WBC 7.3 k/uL (3.8-10.6)
[2022-06-20 08:17] LABS: ALT 24 U/L (4-34); AST 26 U/L (14-36); African American GFR (CKD) >90 (>60 ml/min/1.73 sqM); Albumin 4.3 g/dL (3.5-5.0); Alkaline Phosphatase 70 U/L (38-126); Amylase 52 U/L (30-110); Anion Gap 10 mmol/L; Blood Urea Nitrogen 13 mg/dL (7-17); Calcium 8.6 mg/dL (8.4-10.2); Carbon Dioxide 25 mmol/L (22-30); Chloride 102 mmol/L (98-107); Glucose 109 mg/dL (74-99); Lipase 109 U/L (23-300); Non-African American GFR(CKD) 80 (>60 ml/min/1.73 sqM); Potassium 4.4 mmol/L (3.5-5.1); Sodium 137 mmol/L (137-145); Total Bilirubin 0.4 mg/dL (0.2-1.3); Total Protein 7.4 g/dL (6.3-8.2)
[2022-06-20 08:21] LABS: Partial Thromboplastin Time 25.8 sec (22.0-30.0); Prothrombin Time 10.1 sec (9.0-12.0)
[2022-06-20 08:34] LABS: HCG,Quantitative Serum <2.4 mIU/mL
--- NOTE | 2022-06-20 09:09 | CT ---
EXAMINATION TYPE: CT abdomen pelvis w con CT DLP: 1818.4 mGycm, Automated exposure control for dose reduction was used. DATE OF EXAM: 06/20/2022 9:01 AM COMPARISON: None CLINICAL INDICATION:Female, 42 years old with history of abdominal pain; Left lower quadrant pain-pos terior TECHNIQUE: Standard CT of the abdomen and pelvis following the administration of 100 cc of Isovue 3 00 IV contrast material. Coronal and sagittal reformats were performed. FINDINGS: LOWER CHEST: Unremarkable ABDOMEN LIVER: Unremarkable GALLBLADDER AND BILE DUCTS: Unremarkable. PANCREAS: Unremarkable. SPLEEN: Unremarkable. ADRENAL GLANDS: Unremarkable. KIDNEYS AND URETERS: No evidence of hydronephrosis. There are 2 calculi within the superior pole of t he left kidney measuring up to 2 mm. The kidneys enhance symmetrically without suspicious focal lesio n. PELVIS BLADDER: Unremarkable REPRODUCTIVE: Unremarkable. ABDOMEN & PELVIS STOMACH AND BOWEL: Tiny hiatal hernia. No focal wall thickening or surrounding inflammatory changes. The appendix is within normal limits. No evidence of bowel obstruction. PERITONEUM: No evidence of pneumoperitoneum or free fluid. VASCULATURE: No evidence of aortic aneurysm. Few pelvic phleboliths. MUSCULOSKELETAL: No acute osseous abnormalities LYMPH NODES: No gross evidence for lymphadenopathy. SOFT TISSUE/ABDOMINAL WALL: Small fat filled umbilical hernia. IMPRESSION: 1. No acute abdominal/pelvic process. 2. Nonobstructive left renal calculi.
[2022-06-20 09:21] LABS: Appearance,Urine Cloudy (Clear); Bilirubin,Urine Negative (Negative); Blood,Urine Large (Negative); Color,Urine Light Yellow; Glucose,Urine (UA) Negative (Negative); Ketones,Urine Negative (Negative); Leukocyte Esterase,Urine Negative (Negative); Mucus,Urine Rare /hpf; Nitrite,Urine Negative (Negative); Protein,Urine Trace (Negative); RBC,Urine 1 /hpf (0-5); Specific Gravity,Urine 1.034 (1.001-1.035); Squamous Epithelial Cell,Urine 9 /hpf (0-4); Urobilinogen,Urine <2.0 mg/dL (<2.0); WBC,Urine 3 /hpf (0-5)
[2022-06-20] MEDS ORDERED: KETOROLAC 15 MG/ML 1 ML VIAL IVP STA (10:11)
[2022-06-20] MEDS ORDERED: HYDROmorphone 0.5 MG/0.5 ML SYRINGE IVP STA (10:13)
[2022-06-20 10:23] VITALS: BP 155/84; PULSE 65
== END 2022-06-20 10:24 | disposition home or self-care (01) ==
LOC: EC 07:24
DX: M54.50 Low back pain, unspecified (principal); J45.909 Unspecified asthma, uncomplicated; E11.9 Type 2 diabetes mellitus without complications; E78.5 Hyperlipidemia, unspecified; I10 Essential (primary) hypertension; K21.9 Gastro-esophageal reflux disease without esophagitis; F41.9 Anxiety disorder, unspecified; F31.9 Bipolar disorder, unspecified; F17.200 Nicotine dependence, unspecified, uncomplicated; Z88.8 Allergy status to other drugs, medicaments and biological substances; Z88.5 Allergy status to narcotic agent; Z88.1 Allergy status to other antibiotic agents; Z88.0 Allergy status to penicillin; Z79.82 Long term (current) use of aspirin; Z79.84 Long term (current) use of oral hypoglycemic drugs; Z79.899 Other long term (current) drug therapy
CPT/HCPCS: 36415; 80053; 82150; 83690; 85025; 85610; 85730; 81001; 84702; 74177; 99284; 96374; 96375; J1170; C9113; Q9967

== ENCOUNTER → 2023-02-20 | Outpatient (CLI) | payer OTHER ==
[2023-02-20 17:10] LABS: Chol/HDL Ratio 4.95 Ratio
[2023-02-20 17:11] LABS: LDL Cholesterol,Calculated 82.1 mg/dL (0.0-131.0); T4, Free (Free Thyroxine) 0.19 ng/dL (0.80-1.80)
[2023-02-20 17:48] LABS: ALT 17 U/L (8-44); AST 24 U/L (13-35); Albumin 4.1 g/dL (3.8-4.9); Albumin/Globulin Ratio 1.71 Ratio (1.60-3.17); Alkaline Phosphatase 61 U/L (41-126); Blood Urea Nitrogen 13.8 mg/dL (9.0-27.0); Calcium 8.8 mg/dL (8.7-10.3); Carbon Dioxide 22.8 mmol/L (21.6-31.8); Chloride 105 mmol/L (96-109); Globulin 2.4 g/dL (1.6-3.3); Glucose 90 mg/dL (70-110); Sodium 139 mmol/L (135-145); Total Bilirubin <0.2 mg/dL (0.3-1.2); Total Protein 6.5 g/dL (6.2-8.2)
== END | disposition home or self-care (01) ==
LOC: LABWHC1 07:53
PROVIDERS: ATTEND Internal Medicine
DX: E03.9 Hypothyroidism, unspecified (principal); E11.65 Type 2 diabetes mellitus with hyperglycemia
CPT/HCPCS: 36415; 80053; 80061; 82043; 82570; 83036; 84439; 84443

== ENCOUNTER → 2023-07-16 | Outpatient (CLI) | payer OTHER ==
--- NOTE | 2023-07-16 23:09 | MR ---
EXAMINATION TYPE: MR knee LT wo con DATE OF EXAM: 07/16/2023 COMPARISON: Prior MRI left knee March 12, 2018. Bilateral outside knee x-rays July 09, 2023 HISTORY: Left knee outer pain and swelling and locking since high school with history of surgery TECHNIQUE: Multiplanar, multisequence images of the knee is performed without IV contrast. FINDINGS: MEDIAL MENISCUS: Medial bulging medial meniscus on coronal images. More prominent globular increased signal posterior horn appears to extend to the inferior articular surface sagittal image 26. LATERAL MENISCUS: Anterior and posterior horns are intact without tear. CRUCIATE LIGAMENTS: The anterior and posterior cruciate ligaments are intact and unremarkable. COLLATERAL LIGAMENTS: The medial collateral ligament and lateral collateral ligament complex are inta ct and unremarkable. EXTENSOR MECHANISM: Visualized quadriceps and patellar tendons are intact. EFFUSION: Stable small size suprapatellar joint effusion. POPLITEAL CYST: No popliteal/schumacher cyst. TRICOMPARTMENT SPACES: Mild to moderate tricompartment joint space loss without significant spurring. CARTILAGE: Tricompartment articular cartilage is preserved. BONE MARROW SIGNAL: No focal abnormal marrow signal is appreciated. OTHER: No additional significant abnormality is appreciated. IMPRESSION: 1. There is now full-thickness tear posterior horn medial meniscus felt present progressed from 2019 MRI. 2. Mild to borderline moderate tricompartment degenerative changes with some interval degenerative pr ogression from 2019 MRI. 3. Stable small suprapatellar joint effusion.
== END | disposition home or self-care (01) ==
LOC: RADMRIMAIN 17:10
PROVIDERS: ATTEND Orthopaedic Surgery
DX: S83.242A Other tear of medial meniscus, current injury, left knee, initial encounter (principal); M17.12 Unilateral primary osteoarthritis, left knee

== ENCOUNTER → 2023-08-11 | Outpatient (CLI) | payer OTHER ==
[2023-08-11 19:14] LABS: Basophils # (A) 0.04 X 10*3/uL (0.00-0.10); Basophils % (A) 0.6 %; Eosinophils # (A) 0.15 X 10*3/uL (0.04-0.35); Eosinophils % (A) 2.1 %; HCT 42.8 % (37.2-46.3); HGB 13.3 g/dL (12.0-15.0); Lymphocytes # (A) 1.96 X 10*3/uL (0.90-5.00); Lymphocytes % (A) 27.9 %; MCHC 31.1 g/dL (32.0-37.0); MCV 83.6 FL (80.0-97.0); Mean Platelet Volume 10.5 FL (9.5-12.2); Monocytes # (A) 0.44 X 10*3/uL (0.20-1.00); Monocytes % (A) 6.3 %; NRBC Per 100 WBC 0 X 10*3/uL (0.00-0.01); Neutrophils # (A) 4.39 X 10*3/uL (1.80-7.70); Neutrophils % (A) 62.5 %; Platelet Count 344 X 10*3/uL (140-440); RBC 5.12 X 10*6/uL (4.10-5.20); RDW 13.5 % (11.5-14.5); WBC 7.02 X 10*3/uL (4.50-10.00)
[2023-08-11 19:42] LABS: Anion Gap 11.5 mmol/L (4.00-12.00); Carbon Dioxide 24.5 mmol/L (21.6-31.8); Potassium 3.9 mmol/L (3.5-5.5)
== END | disposition home or self-care (01) ==
LOC: LABWHC1 11:04
PROVIDERS: ATTEND Orthopaedic Surgery
DX: Z01.812 Encounter for preprocedural laboratory examination (principal); M23.92 Unspecified internal derangement of left knee
CPT/HCPCS: 36415; 80051; 85025

== ENCOUNTER → 2023-11-27 | Outpatient (CLI) | payer OTHER ==
[2023-11-28 02:38] LABS: Basophils # (A) 0.05 X 10*3/uL (0.00-0.10); Basophils % (A) 0.6 %; Eosinophils # (A) 0.15 X 10*3/uL (0.04-0.35); Eosinophils % (A) 1.9 %; HCT 44.6 % (37.2-46.3); Lymphocytes # (A) 2.68 X 10*3/uL (0.90-5.00); Lymphocytes % (A) 34.8 %; MCH 27.8 pg (27.0-32.0); MCHC 31.4 g/dL (32.0-37.0); MCV 88.7 FL (80.0-97.0); Mean Platelet Volume 10.5 FL (9.5-12.2); Monocytes # (A) 0.44 X 10*3/uL (0.20-1.00); Monocytes % (A) 5.7 %; NRBC Per 100 WBC 0 X 10*3/uL (0.00-0.01); Neutrophils # (A) 4.37 X 10*3/uL (1.80-7.70); Neutrophils % (A) 56.7 %; Platelet Count 302 X 10*3/uL (140-440); RBC 5.03 X 10*6/uL (4.10-5.20); RDW 14.4 % (11.5-14.5); WBC 7.71 X 10*3/uL (4.50-10.00)
[2023-11-28 03:47] LABS: Anion Gap 12.4 mmol/L (4.00-12.00); Carbon Dioxide 22.6 mmol/L (21.6-31.8); Potassium 3.8 mmol/L (3.5-5.5)
== END | disposition home or self-care (01) ==
LOC: LABWHC1 16:24
PROVIDERS: ATTEND Orthopaedic Surgery
DX: Z01.818 Encounter for other preprocedural examination
CPT/HCPCS: 36415; 80051; 85025

== ENCOUNTER 2023-12-10 06:28 | Day surgery (SDC) | payer OTHER ==
--- NOTE | 2023-12-09 23:08 | HP ---
HISTORY AND PHYSICAL DATE OF SURGERY: 12/10/2023. HISTORY OF PRESENT ILLNESS: Nia Cruz is a 43-year-old patient seen with progressive left knee pain. We discussed options regarding treatment. She elected to proceed with left knee arthroscopy. Consent was obtained. PAST MEDICAL HISTORY: Asthma, pkv-inewyxc-gsfawkbsk diabetes, hypertension, hypothyroidism. PAST SURGICAL HISTORY: section, carpal tunnel release, knee arthroscopy. DAILY MEDICATIONS: 1. Atorvastatin. 2. Buspirone. 3. Spiriva. 4. Trulicity. 5. Lomotil. ALLERGIES: Ultram, Tylenol, Benadryl, penicillin, clindamycin, Keflex, and Vicodin. SOCIAL HISTORY: She denies tobacco use. PHYSICAL EVALUATION OF THE LEFT KNEE: Range of motion is -2 to 125 degrees. Mild effusion. Tenderness, medial joint line. Positive medial Quinn's. Ligaments stable. Hip rotation without pain. Distal neurovascular exam is intact. IMAGING STUDIES: Radiographs of the left knee revealed mild medial compartment osteoarthritis. MRI of left knee revealed medial meniscal tear, effusion. IMPRESSION: 1. Internal derangement of left knee with medial meniscal tear. 2. Hypertension. 3. Elf-savzoxh-wnbtbwwjs diabetes. PLAN: Left knee arthroscopy with partial medial meniscectomy and debridement. MMODL / IJN: [id number] /
[~2023-12-10 06:28] MED LIST changes: -DEXAMETHASONE SOD PHOSPHATE 4 MG/ML 1 ML VIAL IV ONE; -LACTATED RINGERS 1,000 ML IV SCH; +LIDOCAINE 1% (10MG/ML) FOR IV START INTRADERMA PRN; +MIDAZOLAM 2 MG/2 ML VIAL IV PRN; -ONDANSETRON 4 MG/2 ML VIAL IVP ONE; -VANCOMYCIN 1,750 MG in SODIUM CHLORIDE 0.9% 500 ML 500 ML IVPB PRN; +fentaNYL (PF) 50 MCG/ML 2 ML AMP IVP PRN
[2023-12-10 07:16] LABS: Glucose,Whole Blood 125 mg/dL (70-110)
[2023-12-10] MEDS: LACTATED RINGERS 1,000 ML IV SCH (07:17)
[2023-12-10] MEDS: ONDANSETRON 4 MG/2 ML VIAL IVP ONE (07:17)
[2023-12-10] MEDS: DEXAMETHASONE SOD PHOSPHATE 4 MG/ML 1 ML VIAL IV ONE (07:17)
[2023-12-10] MEDS: IV FLUID CONTINUATION 1,000 ML IV ONE (07:21)
[2023-12-10] MEDS ORDERED: SUCCINYLCHOLINE CHLORIDE 200 MG/10 ML VIAL IV ONE (07:22)
[2023-12-10] MEDS ORDERED: MIDAZOLAM 2 MG/2 ML VIAL ONE (07:22)
[2023-12-10] MEDS ORDERED: PROPOFOL 10 MG/ML 20 ML VIAL IV ONE (07:22)
[2023-12-10] MEDS ORDERED: LIDOCAINE 1% INJ 10MG/ML (20 ML MDV) ONE (07:22)
[2023-12-10] MEDS ORDERED: fentaNYL (PF) 50 MCG/ML 2 ML AMP ONE (07:22)
[2023-12-10] MEDS: BUPIVACAINE (PF) 0.25% 30 ML VIAL INTRAARTIC ONE ×2 (07:27→07:46)
[2023-12-10 08:23] VITALS: TEMP 97.2
--- NOTE | 2023-12-10 08:23 | P.OP ---
Date of Procedure: 12/10/23 Preoperative Diagnosis: Internal derangement left knee Postoperative Diagnosis: 1. Tear medial and lateral meniscus left knee 2. Grade IV chondromalacia medial femoral condyle left knee 3. Reactive synovitis medial, lateral and suprapatellar compartments left knee Procedure(s) Performed: 1. Arthroscopic partial medial and lateral meniscectomy left knee 2. Arthroscopic microfracture medial femoral condyle left knee 3. Arthroscopic partial synovectomy medial, lateral and suprapatellar compartments left knee Anesthesia: LIZZYA, local Surgeon: Mp Michaud Estimated Blood Loss (ml): 6 Pathology: none sent Condition: stable Disposition: PACU Indications for Procedure: 43-year-old patient seen with progressive left knee pain. After having treatment options discussed, she elected to proceed with arthroscopy. Operative Findings: See description of procedure Description of Procedure: Patient was taken to the operative suite. Patient underwent a general anesthetic by the department of anesthesia. Patient was given preoperative antibiotics. The left lower extremity was placed in a well-padded arthroscopic leg gardner. The left leg was prepped and draped in the normal sterile orthopedic fashion. A lateral parapatellar and suprapatellar incision was made. Trochars were inserted. Arthroscopy was initiated. Suprapatellar pouch revealed diffuse thick reactive synovitis. The patellofemoral joint appeared to articulate congruently. There was grade I/II chondromalacia of the patella without significant osteochondral tears. The scope was guided into the medial gutter. No loose bodies or plica were identified. The scope was then guided into the medial compartment. A medial parapatellar incision was made. Trocar inserted followed by probe. There was a radial tear posterior horn medial meniscus. There was an area of grade III chondromalacia medial femoral condyle with osteochondral flap tears. There was thick reactive synovitis anteriorly. I performed a partial medial meniscectomy getting down to stable meniscal tissue. I performed a chondroplasty of the medial femoral condyle getting down to stable osteochondral tissue. I performed a partial synovectomy decompressing the reactive synovitis. I did note an area of exposed bone along the medial femoral condyle/grade IV chondromalacia. This measured just under centimeter. I introduced a microfracture awl and I performed a microfracture to that area of exposed bone penetrating the bone with resultant bleeding at the microfracture site. The residual meniscus was probed and was found to be stable. The residual osteochondral surface was stable. There was good decompression of the synovitis. Scope and probe were then guided into the intercondylar notch. Cruciates were identified, probed and found to be stable. The scope and probe were then guided into lateral compartment. There was a radial tear anterior horn lateral meniscus. The remaining meniscus was stable. There was no significant chondromalacia. There was reactive synovitis anteriorly. I performed a partial lateral meniscectomy getting down to stable meniscal tissue. I performed a partial synovectomy decompressing the reactive synovitis. The residual meniscus was stable. There was good decompression of the synovitis. The scope was in guided back into the suprapatellar compartment. I introduced a motorized shaver into the suprapatellar compartment. I debrided some piecemeal fragments of meniscus I encountered. I performed a partial synovectomy. The shaver was removed. There was good decompression of the synovitis. I took 1 more look around the entire knee, no residual debris. Instruments were now removed from the joint. The joint was infiltrated with .25% Marcaine. Steri- Strips were applied to the portal sites. Sterile dressings were applied. The patient was placed into a GURVINDER hose. No tourniquet was utilized. The patient was awakened, transferred to a bed and taken to recovery stable satisfactory condition.
[2023-12-10] MEDS: HYDROmorphone 0.5 MG/0.5 ML SYRINGE IVP PRN (08:59)
[2023-12-10] MEDS: KETOROLAC 15 MG/ML 1 ML VIAL IM STA (09:01)
[2023-12-10] MEDS: KETOROLAC 15 MG/ML 1 ML VIAL IVP STA (09:05)
[2023-12-10 09:27] VITALS: RESP 16
[2023-12-10] MEDS: HYDROcodone/APAP 5-325MG 1 EACH TAB PO STA (09:46)
[2023-12-10 09:48] VITALS: BP 147/80; PULSE 55
== END 2023-12-10 10:31 | disposition home or self-care (01) ==
LOC: OR 06:28
PROVIDERS: ATTEND Orthopaedic Surgery
CPT/HCPCS: 81025

== ENCOUNTER 2023-12-12 18:12 | Emergency (ER) | payer OTHER ==
[2023-12-12 19:17] VITALS: TEMP 98.9
--- NOTE | 2023-12-12 19:58 | ED ---
Lower Extremity Injury HPI - General Chief Complaint: Extremity Injury, Lower Stated Complaint: Fall/Knee/Post Op Time Seen by Provider: 12/12/23 19:55 Source: patient, RN notes reviewed Mode of arrival: wheelchair Limitations: no limitations - History of Present Illness Initial Comments: 43-year-old female presenting with left knee injury 3 hours ago. States she was using her walker to get out of bed this morning when she felt a "pop" in her left knee. Patient immediately felt sharp pain from the knee down to her foot. Patient recently underwent arthroscopic left knee surgery by Dr. Michaud 2 days ago. Patient has been able to weight-bear while using a walker with no complications. - Related Data Home Medications Medication Instructions Recorded Confirmed Aspirin [Adult Low Dose Aspirin EC] 81 mg PO DAILY 10/30/18 12/10/23 Acetaminophen Tab [Tylenol Tab] 1,000 mg PO BID PRN 03/29/19 12/10/23 Ergocalciferol [Vitamin D2] 50,000 unit PO Q30D 03/29/19 12/10/23 Ferrous Sulfate [Feosol] 325 mg PO TID 09/14/19 12/10/23 Loratadine 10 mg PO DAILY PRN 05/24/21 12/10/23 Losartan Potassium [Cozaar] 100 mg PO DAILY 05/24/21 12/10/23 Lurasidone [Latuda] 80 mg PO HS 05/24/21 12/10/23 Metoprolol Succinate (ER) [Toprol 50 mg PO DAILY 05/24/21 12/10/23 Xl] Atorvastatin Calcium [Lipitor] 80 mg PO HS 05/30/21 12/10/23 HYDROcodone/APAP 7.5-325MG [[place] 1 tab PO Q6HR PRN 05/30/21 12/10/23 7.5] metFORMIN HCL [Glucophage] 500 mg PO DAILY 05/30/21 12/10/23 Dulaglutide [Trulicity] 0.75 mg SQ WEEKLY 12/04/23 12/10/23 Levothyroxine Sodium 200 mcg PO DAILY 12/04/23 12/10/23 Liothyronine Sodium 25 mcg PO DAILY 12/04/23 12/10/23 busPIRone HCl [Buspar] 10 mg PO BID 12/04/23 12/10/23 Previous Rx's Medication Instructions Recorded HYDROcodone/APAP 5-325MG [[place] 1 tab PO Q6HR PRN #12 tab 12/10/23 5-325] Allergies Allergy/AdvReac Type Severity Reaction Status Date / Time cephalexin [From Keflex] Allergy Anaphylaxis Verified 12/10/23 07:01 clindamycin Allergy Anaphylaxis Verified 12/10/23 07:01 diphenhydramine Allergy Anaphylaxis Verified 12/10/23 07:01 [From Benadryl] Penicillins Allergy Anaphylaxis Verified 12/10/23 07:01 quetiapine [From Seroquel] Allergy Rash/Hives Verified 12/10/23 07:01 rofecoxib [From Vioxx] Allergy Anaphylaxis Verified 12/10/23 07:01 tramadol Allergy Rash/Hives Verified 12/10/23 07:01 vancomycin Allergy Dyspnea Verified 12/10/23 07:01 varenicline tartrate Allergy Confusion Verified 12/10/23 07:01 [From Chantix] Review of Systems ROS Statement: Those systems with pertinent positive or pertinent negative responses have been documented in the HPI. ROS Other: All systems not noted in ROS Statement are negative. Past Medical History Past Medical History: Asthma, Diabetes Mellitus, GERD/Reflux, Hyperlipidemia, Hypertension, Thyroid Disorder Additional Past Medical History / Comment(s): nonalcoholic fatty liver, edema lower legs/feet History of Any Multi-Drug Resistant Organisms: None Reported Past Surgical History: Section, Orthopedic Surgery Additional Past Surgical History / Comment(s): C-SEC X 3, left knee, RT KNEE SX-08/2018, LT CTR, rt miniscus Past Anesthesia/Blood Transfusion Reactions: No Reported Reaction Past Psychological History: Anxiety, Bipolar, Depression, PTSD Smoking Status: Current every day smoker - Past Family History Sister(s) Family Medical History: Fibromyalgia, Musculoskeletal Disorder Additional Family Medical History / Comment(s): MULTIPLE SCLEROSIS Mother Family Medical History: Coronary Artery Disease (CAD), CVA/TIA, Diabetes Mellitus Additional Family Medical History / Comment(s): BIPOLAR. PARKINSONS DISEASE Father Family Medical History: Cancer Additional Family Medical History / Comment(s): colon cancer General Exam Limitations: no limitations General appearance: alert, in no apparent distress Head exam: Present: atraumatic, normocephalic, normal inspection Eye exam: Present: normal appearance, PERRL, EOMI. Absent: scleral icterus, conjunctival injection, periorbital swelling Left Upper Leg exam: Present: normal inspection, full ROM. Absent: tenderness, swelling Knee exam: Present: full ROM, tenderness (Diffuse tenderness along the and along anterior aspect of left leg). Absent: normal inspection (Incision site clean dry and intact, no purulence or erythema), swelling, abrasion, laceration, deformity, dislocation, erythema, pain/laxity with valgus, pain/laxity with varus Lower Leg exam: Present: normal inspection, full ROM, tenderness. Absent: swelling Ankle exam: Present: normal inspection, full ROM. Absent: tenderness, swelling Foot/Toe exam: Present: normal inspection, full ROM. Absent: tenderness, swelling Neurovascular tendon exam: Present: no vascular compromise. Absent: pulse deficit, abnormal cap refill, motor deficit, sensory deficit Neurological exam: Present: alert, oriented X3 Psychiatric exam: Present: normal affect, normal mood Skin exam: Present: warm, dry, intact, normal color. Absent: rash Course Vital Signs 12/12/23 12/12/23 19:15 21:54 Temperature 98.9 F Pulse Rate 72 66 Respiratory 18 16 Rate Blood Pressure 196/96 167/96 O2 Sat by Pulse 97 96 Oximetry Medical Decision Making - Medical Decision Making Was pt. sent in by a medical professional or institution ([facility], [employer] IRONER OPERATOR, urgent care, hospital, or penitentiary...) When possible be specific @ -No Did you speak to anyone other than the patient for history (EMS, parent, family, police, friend...)? What history was obtained from this source @ -No Did you review nursing and triage notes (agree or disagree)? Why? @ -I reviewed and agree with nursing and triage notes Were old charts reviewed (outside hosp., previous admission, EMS record, old EKG, old radiological studies, urgent care reports/EKG's, penitentiary records)? Report findings @ -No old charts were reviewed Differential Diagnosis (chest pain, altered mental status, abdominal pain women, abdominal pain men, vaginal bleeding, weakness, fever, dyspnea, syncope, headache, dizziness, GI bleed, back pain, seizure, CVA, palpatations, mental health, musculoskeletal)? @ -Differential Musculoskeletal Muscular strain, contusion, ligament sprain, fracture, arthritis, septic arthritis, bursitis, cellulitis, muscle spasm, nerve compression, DVT, arterial occlusion, herpes zoster, electrolyte abnormality, tumor.... This is not meant to be in all inclusive list EKG interpreted by me (3pts min.). @ -None X-rays interpreted by me (1pt min.). @ -X-ray of left knee reveals no acute process CT interpreted by me (1pt min.). @ -None done U/S interpreted by me (1pt. min.). @ -None done What testing was considered but not performed or refused? (CT, X-rays, U/S, l abs)? Why? @ -None What meds were considered but not given or refused? Why? @ -None Did you discuss the management of the patient with other professionals (professionals i.e. , PA, CR[employer] IRONER OPERATOR, lab, RT, psych nurse, foster care social worker, physiotherapy aide, teacher, agricultural extension officer, case preparer and liner)? Give summary @ -No Was smoking cessation discussed for >3mins.? @ -No Was critical care preformed (if so, how long)? @ -No Were there social determinants of health that impacted care today? How? (Homelessness, low income, unemployed, alcoholism, drug addiction, transportation, low edu. Level, literacy, decrease access to med. care, half-way, rehab)? @ -No Was there de-escalation of care discussed even if they declined (Discuss DNR or withdrawal of care, Hospice)? DNR status @ -No What co-morbidities impacted this encounter? (DM, HTN, Smoking, COPD, CAD, Cancer, CVA, ARF, Chemo, Hep., AIDS, mental health diagnosis, sleep apnea, morbid obesity)? @ -None Was patient admitted / discharged? Hospital course, mention meds given and route, prescriptions, significant lab abnormalities, going to OR and other pertinent info. @ -Discharged. This is a 43-year-old female presenting with left knee injury prior to arrival. Patient states she had arthroscopic surgery for meniscal left knee tear [address] Michaud. She was attempting to get out of bed when she felt a pop in her left knee. Patient is initially hypertensive, other vital signs within acceptable limits. Neurovascularly intact. Incisions are clean dry and intact, no sign of bacterial infection. DP pulses are strong and equal bilaterally. Analgesics were given. X-ray of left knee reveals no acute process. Discussed patient may have torn ligament in her left knee. Advised close follow-up with Dr. Michaud on Friday. Patient is agreeable to plan. Upon recheck, blood pressure reduces to 167/96. Return precautions discussed as well as supportive care. Case was discussed with my ED attending Dr. Valderrama. Patient discharged in stable condition. Undiagnosed new problem with uncertain prognosis? @ -No Drug Therapy requiring intensive monitoring for toxicity (Heparin, Nitro, Insulin, Cardizem)? @ -No Were any procedures done? @ -No Diagnosis/symptom? @ -Left knee sprain Acute, or Chronic, or Acute on Chronic? @ -Acute Uncomplicated (without systemic symptoms) or Complicated (systemic symptoms)? @ -Uncomplicated Side effects of treatment? @ -No Exacerbation, Progression, or Severe Exacerbation? @ -No Poses a threat to life or bodily function? How? (Chest pain, [place], MT, pneumonia, PE, COPD, DKA, ARF, appy, cholecystitis, CVA, Diverticulitis, Homicidal, Suicidal, threat to staff... and all critical care pts) @ -No Disposition Clinical Impression: Left knee injury Disposition: HOME SELF-CARE Condition: Stable Instructions (If sedation given, give patient instructions): Knee Sprain (ED) Additional Instructions: Follow-up with Dr. Michaud on Friday. Please return to the Emergency Department if symptoms worsen or any other concerns. Is patient prescribed a controlled substance at d/c from ED?: No Referrals: Ubaldo Goldsmith MD [Primary Care Provider] - 1-2 days Time of Disposition: 21:45
[2023-12-12] MEDS: MORPHINE SULFATE 4 MG/ML SYRINGE IM STA (20:02)
--- NOTE | 2023-12-12 21:32 | XR ---
EXAMINATION TYPE: XR knee complete LT DATE OF EXAM: 12/12/2023 8:14 PM CLINICAL INDICATION:Female, 43 years old with history of left knee injury; [facility] COMPARISON: None. TECHNIQUE: XR knee complete LT; examined in Frontal, lateral and oblique projections. FINDINGS: No acute fracture or dislocation. Mild narrowing of the medial compartment joint space. Soft tissue f ullness suggests moderate-sized suprapatellar joint effusion. IMPRESSION: No acute fracture or dislocation. [facility], , 12/12/2023 9:30 PM
[2023-12-12 21:57] VITALS: BP 167/96; PULSE 66; RESP 16
== END 2023-12-12 21:54 | disposition home or self-care (01) ==
LOC: EC 18:12
CPT/HCPCS: 96372; 99283

== ENCOUNTER → 2024-02-16 | Outpatient (CLI) | payer OTHER ==
--- NOTE | 2024-02-16 22:26 | MR ---
EXAMINATION TYPE: MR shoulder LT wo con DATE OF EXAM: 02/16/2024 8:41 PM COMPARISON: Outside left shoulder x-ray November 04, 2023 CLINICAL INDICATION: Female, 43 years old with history of M25.512, Left shoulder pain and difficulty raising arm x2 months. Possible torn rotator cuff and bone spurs IV Contrast: cc (None if empty) TECHNIQUE: Multiplanar, multisequence imaging of the left shoulder is performed without contrast. FINDINGS: Rotator Cuff: Intact supraspinatus and infraspinatus tendons. Intact subscapularis tendon. Rotator cu ff muscle bulk is preserved. Acromioclavicular Joint: Mild narrowing. No significant spurring. Underlying fat plane is maintained. Glenohumeral Joint: No significant effusion. No significant spurring. Labrum: Heterogeneous increased signal superior labrum consistent with tear. Biceps Tendon: The long head of biceps is in normal location within bicipital groove. Bone marrow signal: No focal abnormal marrow signal is appreciated. Other: No additional significant abnormality is appreciated. IMPRESSION: Superior labral tear. No rotator cuff tear. [facility], , 02/16/2024 10:23 PM
== END | disposition home or self-care (01) ==
LOC: RADMRIMAIN 20:15
PROVIDERS: ATTEND Orthopaedic Surgery
DX: S43.432A Superior glenoid labrum lesion of left shoulder, initial encounter (principal); X58.XXXA Exposure to other specified factors, initial encounter

== ENCOUNTER 2024-06-22 17:48 | Emergency (ER) | payer OTHER ==
--- NOTE | 2024-06-22 18:41 | ED ---
General Adult HPI - General Chief complaint: Extremity Injury, Lower Stated complaint: L leg swelling Time Seen by Provider: 06/22/24 18:21 Source: patient, RN notes reviewed Mode of arrival: ambulatory Limitations: no limitations - History of Present Illness Initial comments: 44-year-old female presents to the emergency department for evaluation of left lower extremity pain. Patient states that the pain started in her left knee 2 days ago. She notes it is in the front of her knee and radiates down her monteiro. She states that the pain is worse with weightbearing. She reports that she is able to bear some weight. She denies any known injury. She does note that she may have injured it while playing with her dog but does not recall anything. De nies any calf pain. Denies any recent surgery or immobilization. Denies any fever, chills. Denies any overlying redness. - Related Data Home Medications Medication Instructions Recorded Confirmed Aspirin [Adult Low Dose Aspirin EC] 81 mg PO DAILY 10/30/18 12/10/23 Acetaminophen Tab [Tylenol Tab] 1,000 mg PO BID PRN 03/29/19 12/10/23 Ergocalciferol [Vitamin D2] 50,000 unit PO Q30D 03/29/19 12/10/23 Ferrous Sulfate [Feosol] 325 mg PO TID 09/14/19 12/10/23 Loratadine 10 mg PO DAILY PRN 05/24/21 12/10/23 Losartan Potassium [Cozaar] 100 mg PO DAILY 05/24/21 12/10/23 Lurasidone [Latuda] 80 mg PO HS 05/24/21 12/10/23 Metoprolol Succinate (ER) [Toprol 50 mg PO DAILY 05/24/21 12/10/23 Xl] Atorvastatin Calcium [Lipitor] 80 mg PO HS 05/30/21 12/10/23 HYDROcodone/APAP 7.5-325MG [[place] 1 tab PO Q6HR PRN 05/30/21 12/10/23 7.5] metFORMIN HCL [Glucophage] 500 mg PO DAILY 05/30/21 12/10/23 Dulaglutide [Trulicity] 0.75 mg SQ WEEKLY 12/04/23 12/10/23 Levothyroxine Sodium 200 mcg PO DAILY 12/04/23 12/10/23 Liothyronine Sodium 25 mcg PO DAILY 12/04/23 12/10/23 busPIRone HCl [Buspar] 10 mg PO BID 12/04/23 12/10/23 Previous Rx's Medication Instructions Recorded HYDROcodone/APAP 5-325MG [[place] 1 tab PO Q6HR PRN #12 tab 12/10/23 5-325] Allergies Allergy/AdvReac Type Severity Reaction Status Date / Time cephalexin [From Keflex] Allergy Anaphylaxis Verified 06/22/24 18:21 clindamycin Allergy Anaphylaxis Verified 06/22/24 18:21 diphenhydramine Allergy Anaphylaxis Verified 06/22/24 18:21 [From Benadryl] Penicillins Allergy Anaphylaxis Verified 06/22/24 18:21 quetiapine [From Seroquel] Allergy Rash/Hives Verified 06/22/24 18:21 rofecoxib [From Vioxx] Allergy Anaphylaxis Verified 06/22/24 18:21 tramadol Allergy Rash/Hives Verified 06/22/24 18:21 vancomycin Allergy Dyspnea Verified 06/22/24 18:21 varenicline tartrate Allergy Confusion Verified 06/22/24 18:21 [From Chantix] Review of Systems ROS Statement: Those systems with pertinent positive or pertinent negative responses have been documented in the HPI. ROS Other: All systems not noted in ROS Statement are negative. Past Medical History Past Medical History: Asthma, Diabetes Mellitus, GERD/Reflux, Hyperlipidemia, Hypertension, Thyroid Disorder Additional Past Medical History / Comment(s): nonalcoholic fatty liver, edema lower legs/feet History of Any Multi-Drug Resistant Organisms: None Reported Past Surgical History: Section, Orthopedic Surgery Additional Past Surgical History / Comment(s): C-SEC X 3, left knee, RT KNEE SX-08/2018, LT CTR, rt miniscus Past Anesthesia/Blood Transfusion Reactions: No Reported Reaction Past Psychological History: Anxiety, Bipolar, Depression, PTSD Smoking Status: Current every day smoker - Past Family History Sister(s) Family Medical History: Fibromyalgia, Musculoskeletal Disorder Additional Family Medical History / Comment(s): MULTIPLE SCLEROSIS Mother Family Medical History: Coronary Artery Disease (CAD), CVA/TIA, Diabetes Mellitus Additional Family Medical History / Comment(s): BIPOLAR. PARKINSONS DISEASE Father Family Medical History: Cancer Additional Family Medical History / Comment(s): colon cancer General Exam Limitations: no limitations General appearance: alert, in no apparent distress Head exam: Present: atraumatic, normocephalic, normal inspection Eye exam: Present: normal appearance, PERRL, EOMI. Absent: scleral icterus, conjunctival injection, periorbital swelling ENT exam: Present: normal exam, mucous membranes moist Respiratory exam: Present: normal lung sounds bilaterally. Absent: respiratory distress, wheezes, rales, rhonchi, stridor Cardiovascular Exam: Present: regular rate, normal rhythm, normal heart sounds. Absent: systolic murmur, diastolic murmur, rubs, gallop, clicks Extremities exam: Present: full ROM, tenderness (Tenderness to palpation over anterior left knee and mid tibia), normal capillary refill, other (DP and PT pulses 2+). Absent: pedal edema, joint swelling, calf tenderness Neurological exam: Present: alert, oriented X3 Psychiatric exam: Present: normal affect, normal mood Skin exam: Present: warm, dry, intact, normal color. Absent: rash Course Vital Signs 06/22/24 06/22/24 18:14 22:05 Temperature 98.2 F 97.8 F Pulse Rate 78 64 Respiratory 17 18 Rate Blood Pressure 185/101 173/104 O2 Sat by Pulse 98 98 Oximetry Medical Decision Making - Medical Decision Making Was pt. sent in by a medical professional or institution ([facility], [facility], urgent care, hospital, or [place] health care facility...) When possible be specific @ -No Did you speak to anyone other than the patient for history (EMS, parent, family, police, friend...)? What history was obtained from this source @ -No Did you review nursing and triage notes (agree or disagree)? Why? @ -I reviewed and agree with nursing and triage notes Were old charts reviewed (outside hosp., previous admission, EMS record, old EKG, old radiological studies, urgent care reports/EKG's, [place] health care facility records)? Report findings @ -No old charts were reviewed Differential Diagnosis (chest pain, altered mental status, abdominal pain women, abdominal pain men, vaginal bleeding, weakness, fever, dyspnea, syncope, headache, dizziness, GI bleed, back pain, seizure, CVA, palpatations, mental health, musculoskeletal)? @ -Differential Musculoskeletal Muscular strain, contusion, ligament sprain, fracture, arthritis, septic arthritis, bursitis, cellulitis, muscle spasm, nerve compression, DVT, arterial occlusion, herpes zoster, electrolyte abnormality, tumor.... This is not meant to be in all inclusive list EKG interpreted by me (3pts min.). @ -None X-rays interpreted by me (1pt min.). @ -X-rays of the left tib-fib reveal no evidence of acute fracture or dislocation CT interpreted by me (1pt min.). @ -None done U/S interpreted by me (1pt. min.). @ -Ultrasound of the left lower extremity reveals no evidence of DVT What testing was considered but not performed or refused? (CT, X-rays, U/S, labs)? Why? @ -None What meds were considered but not given or refused? Why? @ -None Did you discuss the management of the patient with other professionals (professionals i.e. , PA, [employer], lab, RT, psych nurse, social services counselor, confectionery laboratory manager, teacher, youth liaison officer, case supervisor)? Give summary @ -No Was smoking cessation discussed for >3mins.? @ -No Was critical care preformed (if so, how long)? @ -No Were there social determinants of health that impacted care today? How? (Homelessness, low income, unemployed, alcoholism, drug addiction, transportation, low edu. Level, literacy, decrease access to med. care, skilled nursing, rehab)? @ -No Was there de-escalation of care discussed even if they declined (Discuss DNR or withdrawal of care, Hospice)? DNR status @ -No What co-morbidities impacted this encounter? (DM, HTN, Smoking, COPD, CAD, Cancer, CVA, ARF, Chemo, Hep., AIDS, mental health diagnosis, sleep apnea, morbid obesity)? @ -None Was patient admitted / discharged? Hospital course, mention meds given and route, prescriptions, significant lab abnormalities, going to OR and other pertinent info. @ -Discharge. Patient presented emergency department for evaluation of left leg pain. X-rays obtained revealing no evidence of acute fracture or dislocation. Ultrasound of the left lower extremity no evidence of DVT. Patient was provided medication for pain control in the emergency department. An Dillan wrap was applied to the leg. Strict return precautions discussed. Patient stable at time of discharge. Case discussed with Dr. Paz. Undiagnosed new problem with uncertain prognosis? @ -No Drug Therapy requiring intensive monitoring for toxicity (Heparin, Nitro, Insulin, Cardizem)? @ -No Were any procedures done? @ -No Diagnosis/symptom? @ -Leg contusion Acute, or Chronic, or Acute on Chronic? @ -Acute Uncomplicated (without systemic symptoms) or Complicated (systemic symptoms)? @ -Uncomplicated Side effects of treatment? @ -No Exacerbation, Progression, or Severe Exacerbation? @ -No Poses a threat to life or bodily function? How? (Chest pain, USA, PA, pneumonia, PE, COPD, DKA, ARF, appy, cholecystitis, CVA, Diverticulitis, Homicidal, Suicidal, threat to staff... and all critical care pts) @ -No Disposition Clinical Impression: Leg pain Disposition: HOME SELF-CARE Condition: Stable Instructions (If sedation given, give patient instructions): Leg Pain (ED) Additional Instructions: Please utilize anti-inflammatory medications like ibuprofen. You may utilize compression with Dillan wrap. Elevate the leg. Follow-up with your primary care provider. Return to the emergency department for new or worsening symptoms. Is patient prescribed a controlled substance at d/c from ED?: No Referrals: Ubaldo Goldsmith MD [Primary Care Provider] - 1-2 days
[2024-06-22] MEDS: ACETAMINOPHEN TAB 325 MG TAB PO STA (18:46)
[2024-06-22] MEDS: KETOROLAC 15 MG/ML 1 ML VIAL IM STA (18:47)
--- NOTE | 2024-06-22 19:04 | XR ---
EXAMINATION TYPE: XR tibia fibula LT DATE OF EXAM: 06/22/2024 6:55 PM COMPARISON: 12/12/2023 CLINICAL INDICATION: Female, 44 years old with history of pain, pain and swelling TECHNIQUE: 2 view(s) obtained. FINDINGS: Joint spaces are preserved. No acute fractures or dislocations evident. There may be some mild soft t issue swelling present. Note is made of an Achilles calcaneal heel spur. Follow up exams can be performed 7-10 days from acute trauma for continued pain. IMPRESSION: 1. No acute osseous abnormality left tibia and fibula [facility], , 06/22/2024 7:02 PM
--- NOTE | 2024-06-22 21:17 | US ---
EXAMINATION TYPE: US venous doppler duplex LE LT DATE OF EXAM: 06/22/2024 8:44 PM COMPARISON: NONE CLINICAL INDICATION: Female, 44 years old with history of pain, swelling; patient states leg pain. mi nimal swelling, no hx dvt. takes aspirin, Pain TECHNIQUE: The lower extremity deep venous system is examined utilizing real time linear array sonog shankar with graded compression, color doppler sonography, and spectral doppler. SIDE PERFORMED: Left FINDINGS: VESSELS IMAGED: Common Femoral Vein Deep Femoral Vein Greater Saphenous Vein * Femoral Vein Popliteal Vein Small Saphenous Vein * Proximal Calf Veins (* superficial vessels) Left Leg: appears negative for dvt. Distal femoral vein and calf vein comp deferred due to patient p ain tolerance, Color Doppler imaging shows patency of the vessels. Spectral waveforms are within norm al limits. IMPRESSION: 1. Left lower extremity ultrasound negative for deep venous thrombosis. 2. Some limitation in the lower extremity with patient unable to tolerate compressions [facility], , 06/22/2024 9:15 PM
[2024-06-22 22:07] VITALS: BP 173/104; PULSE 64; RESP 18; TEMP 97.8
== END 2024-06-22 22:05 | disposition home or self-care (01) ==
LOC: EC 17:48
DX: M79.662 Pain in left lower leg (principal); F17.200 Nicotine dependence, unspecified, uncomplicated; Z88.0 Allergy status to penicillin; Z88.1 Allergy status to other antibiotic agents; Z88.5 Allergy status to narcotic agent; Z88.6 Allergy status to analgesic agent; Z88.8 Allergy status to other drugs, medicaments and biological substances
CPT/HCPCS: 73590; 93971; 99284; 96372; J1885